=== PATIENT | female | born 1930 | race Caucasian/White ===

== ENCOUNTER 2016-09-05 05:45 | Day surgery (SDC) | payer MEDICARE, BC ==
[2016-09-04 16:00] LABS: BASOPHILS 0.4 % (0-2); EOSINOPHILS 2.5 % (0-7); HEMATOCRIT 41.9 % (36.0-48.0); LYMPHOCYTES 31.1 % (15-50); MCH 32.6 pg (26.0-34.0); MCHC 33.4 g/dL (31.0-37.0); MCV 97.4 fL (80.0-100.0); MEAN PLATELET VOLUME 10.6 fL (7.4-10.4); MONOCYTES 11.7 % (2-11); NEUTROPHILS 54.3 % (40-80); PLATELET COUNT 211 10x3/uL (130-400); RDW 14.2 % (11.5-14.5); WBC 6.8 10x3/uL (4.8-10.8)
[2016-09-04 16:15] LABS: ANION GAP 15.9 mmol/L (8-16); CALCIUM 9.8 mg/dL (8.5-10.1); CARBON DIOXIDE 26.4 mmol/L (21.0-32.0); CREATININE - SERUM 0.8 mg/dL (0.6-1.3); POTASSIUM - SERUM 4.3 mmol/L (3.5-5.1)
[~2016-09-05] VITALS: Ht 152.4 cm; Wt 56.7 kg
[~2016-09-05 05:45] MED LIST: ACETAMINOPHEN500 M1 PO; CALCIUM 250+D T1 TAB PO; DIOVAN80 MG PO; DURAGESIC1 PATCH .7 TRANSDERM; LEVOTHYROXINE100 MCG PO; MULTIPLE VITAMI1 TA1 PO; ZOCOR20 MG PO
[2016-09-05 08:07] VITALS: BP 154/70; Ht 152.4 cm; Wt 56.7 kg
[2016-09-05] MEDS ORDERED: HYDROCODONE-APA1 TAB PO (10:19)
--- NOTE | 2016-09-05 11:50 | NUR ---
STILL WAITING ON RUDDER, FOR RX
--- NOTE | 2016-09-05 11:50 | NUR ---
1030 IV DC WITH CATHER TIP INTACT
--- NOTE | 2016-09-05 12:32 | NUR ---
DR MIRANDA HERE,
--- NOTE | 2016-09-06 15:24 | OP ---
PATIENT NAME: SUZIE PRICE MEDICAL RECORD: [id number] :30 LOCATION:D.OPS ADMISSION DATE: SURGEON: MARIA MIRANDA MD DATE OF OPERATION: 09/05/2016 PREOPERATIVE DIAGNOSIS: Massive ganglion cyst of the left wrist. POSTOPERATIVE DIAGNOSES: Massive ganglion cyst of the left wrist and extensor pollicis longus rupture. PROCEDURE: 1. Removal of a very massive ganglion cyst, dorsal aspect of left wrist. 2. Repair of the extensor pollicis longus. SURGEON: Maria Miranda MD ANESTHESIA: General. INTRAOPERATIVE COMPLICATIONS: None. SUMMARY OF PATHOLOGIC FINDINGS: The patient had a near complete rupture of the EPL in the area of the ganglion cyst. OPERATIVE SUMMARY IN DETAIL: After obtaining the appropriate preoperative orthopedic surgery consent as well as anesthetic consultation, evaluation and clearance, the patient was brought to the operating room and placed in the operating table in supine position. Under adequate TIVA anesthesia, the patient's right upper extremity was prepared with tourniquet about the proximal aspect. The right upper extremity was then prepped and draped in a routine sterile fashion. The arm was elevated and exsanguinated, tourniquet inflated to 350 mmHg. An incision was made directly over the dorsal aspect of the ganglion cyst, carried down to the ganglion cyst. Careful dissection was carried around the multilobate ganglion cyst, which was both proximal to the dorsal wrist crease and distal to the distal wrist crease that required a very elongated incision. Multilobes of the ganglion cysts were removed, as a part of the removal, it was noticed the EPL was near complete rupture. A 4-0 Ethibond was utilized using a Rae stitch to reapproximate the ends. This was then oversewn with more 4-0 in a golbsl-rv-nnqae fashion to augment the repair. Having completed this, the wound was copiously irrigated. Ganglion cyst was sent for permanent specimen. After further irrigation, the incision was closed with 2-0 Vicryl followed by 4-0 Prolene in running fashion. At this point, the tourniquet was deflated and the wrist and thumb was placed in a thumb spica splint to protect the EPL repair. The patient was awakened and taken to recovery room in stable condition. All final needle and sponge counts were correct. TRANSINT:[id number] Voice Confirmation ID: [id number] DOCUMENT ID: [id number] OPERATIVE REPORT [id number] SUZIE PRICE MD, MARIA CALDERON at 1524 CC: [id number] DICTATION DATE: 09/05/16 1339 GRADER MEAT: 09/06/16 0039 [facility] 09/05/16 [place] [id number] [place] [id number]
== END 2016-09-05 12:34 | disposition home or self-care (01) ==
LOC: D.OPS 05:45 → D.PAN 08:15 → D.OPS 12:34
PROVIDERS: Anesthesiology
DX: M67.432 Ganglion, left wrist (principal); S66.811A Strain of other specified muscles, fascia and tendons at wrist and hand level, right hand, initial encounter; X58.XXXA Exposure to other specified factors, initial encounter; Z01.812 Encounter for preprocedural laboratory examination

== ENCOUNTER → 2016-09-19 10:00 | Outpatient (CLI) | payer MEDICARE, BC ==
[2016-09-05 08:07] VITALS: BMI 24.4
[~2016-09-19 10:00] MED LIST changes: +HYDROCODONE-APA1 TAB PO
[2016-09-19 10:46] LABS: BASOPHILS 0.2 % (0-2); EOSINOPHILS 0.2 % (0-7); HEMATOCRIT 40.3 % (36.0-48.0); HEMOGLOBIN 13.5 g/dL (12-16); IMMATURE GRANULOCYTES 0.4 % (0-5); LYMPHOCYTES 12.7 % (15-50); MCH 32.8 pg (26.0-34.0); MCHC 33.5 g/dL (31.0-37.0); MCV 98.1 fL (80.0-100.0); MEAN PLATELET VOLUME 9.6 fL (7.4-10.4); MONOCYTES 7.4 % (2-11); NEUTROPHILS 79.1 % (40-80); PLATELET COUNT 209 10x3/uL (130-400); RBC 4.11 10x6/uL (4.00-5.40); RDW 13.9 % (11.5-14.5); WBC 8.1 10x3/uL (4.8-10.8)
[2016-09-19 11:10] LABS: ALBUMIN 3.2 g/dL (3.4-5.0); ALKALINE PHOSPHATASE 50 U/L (46-116); ALT (SGPT) 20 U/L (10-68); CALC OSMOLALITY 279 mosm/kg (275-300); CALCIUM 9.4 mg/dL (8.5-10.1); CARBON DIOXIDE 26.4 mmol/L (21.0-32.0); CHLORIDE - SERUM 104 mmol/L (98-107); CREATININE - SERUM 0.7 mg/dL (0.6-1.3); GLUCOSE 113 mg/dL (74-106); POTASSIUM - SERUM 4.2 mmol/L (3.5-5.1); PROTEIN - SERUM 7.1 g/dL (6.4-8.2); SODIUM 139 mmol/L (136-145); eGFR NON AFRICAN AMERICAN 84 mL/min (90-120)
[2016-09-19 11:11] LABS: UREA NITROGEN 14 mg/dL (7-18)
== END | disposition home or self-care (01) ==
LOC: D.ER 10:00 → D.MRI 10:00 → EDSTATUS 13:00
PROVIDERS: Physician Assistant
DX: S00.03XA Contusion of scalp, initial encounter (principal); W19.XXXA Unspecified fall, initial encounter; Y93.89 Activity, other specified; Y92.481 Parking lot as the place of occurrence of the external cause; R42 Dizziness and giddiness; F11.90 Opioid use, unspecified, uncomplicated; R93.0 Abnormal findings on diagnostic imaging of skull and head, not elsewhere classified; I10 Essential (primary) hypertension; S01.01XA Laceration without foreign body of scalp, initial encounter

== ENCOUNTER 2016-09-29 08:17 | Emergency (ER) | payer MEDICARE, BC ==
[2016-09-29 09:16] LABS: BASOPHILS 0.3 % (0-2); EOSINOPHILS 0.8 % (0-7); HEMATOCRIT 42.5 % (36.0-48.0); HEMOGLOBIN 14.2 g/dL (12-16); IMMATURE GRANULOCYTES 0.1 % (0-5); LYMPHOCYTES 15.4 % (15-50); MCHC 33.4 g/dL (31.0-37.0); MCV 98.8 fL (80.0-100.0); MEAN PLATELET VOLUME 9.4 fL (7.4-10.4); MONOCYTES 9.7 % (2-11); NEUTROPHILS 73.7 % (40-80); PLATELET COUNT 225 10x3/uL (130-400); RDW 13.8 % (11.5-14.5); WBC 7.4 10x3/uL (4.8-10.8)
[2016-09-29 09:22] LABS: APPEARANCE CLOUDY (CLEAR); BILIRUBIN NEGATIVE (NEGATIVE); COLOR YELLOW (YELLOW); GLUCOSE NEGATIVE (NEGATIVE); KETONE NEGATIVE (NEGATIVE); LEUKOCYTE ESTERASE 1+ (NEGATIVE); NITRITE NEGATIVE (NEGATIVE); UROBILINOGEN NORMAL (NORMAL)
[2016-09-29 09:28] LABS: AMORPHOUS SEDIMENT >1+ /lpf (NONE SEEN); BACTERIA MANY /hpf (NONE SEEN); GRANULAR CAST 0-5 /lpf (NONE SEEN); HYALINE CAST OCC /lpf (NONE SEEN); PROTEIN TRACE mg/dL (NEGATIVE)
[2016-09-29 09:29] LABS: ALBUMIN 3.3 g/dL (3.4-5.0); ANION GAP 14.8 mmol/L (8-16); BILIRUBIN - TOTAL 0.43 mg/dL (0.2-1.3); CALCIUM 9.3 mg/dL (8.5-10.1); CARBON DIOXIDE 25.4 mmol/L (21.0-32.0); CREATININE - SERUM 0.8 mg/dL (0.6-1.3); POTASSIUM - SERUM 4.2 mmol/L (3.5-5.1); PROTEIN - SERUM 7.6 g/dL (6.4-8.2)
[2016-09-29] MEDS ORDERED: LEVOTHYROXINE100 MCG PO (13:00)
[2016-09-29] MEDS ORDERED: ZOCOR20 MG PO (13:02)
[2016-09-29] MEDS ORDERED: DIOVAN80 MG PO (13:02)
[2016-09-29] MEDS ORDERED: DURAGESIC1 PATCH .7 TRANSDERM (13:03)
[2016-09-30 09:41] VITALS: BMI 23.2
== END 2016-09-29 09:55 | disposition home or self-care (01) ==
LOC: D.ER 08:17 → EDBD 08:17 → D.ER 09:55
PROVIDERS: Emergency Medicine
DX: R42 Dizziness and giddiness (principal); N39.0 Urinary tract infection, site not specified; I10 Essential (primary) hypertension; E03.9 Hypothyroidism, unspecified

== ENCOUNTER 2016-09-29 11:19 | Inpatient (IN) | payer MEDICARE, BC ==
[~2016-09-29] VITALS: Ht 152.4 cm; Wt 56.5 kg
--- NOTE | ~2016-09-29 | HEMODYNAMI ---
PATIENT:SUZIE PRICE MEDICAL RECORD: [id number] : 30 LOCATION:[facility] D.2310 ADMISSION DATE: 09/30/16 Generatedon:09/30/201610:59 Patient name: SUZIE PRICE Patient #: [id number] SSN: D OB: 1930 Date of study: 09/30/2016 Page: Of Hemodynamic Procedure Report Patient Data Patient Demographics Procedure consent was obtained First Name: SUZIE Gender: Female Last Name: ALBERT : 1930 Patient #: [id number] Age: 86 year(s) Race: Unknown Additional ID: [id number] Contact details [address]: [address] [place] [address] State: [place] City: [place] Zip code: [address] Past Medical History Allergies Allergen Reaction Date Comments Reported Sulfa drugs 09/30/2016 Admission Admission Data Admission Date: 09/30/2016 Admission Time: 8:34 Room #: D.2310 Procedure Procedure Types Cath Procedure Diagnostic Procedure Temporary Pacemaker Miscellaneous Procedures Moderate Sedation up to 15 minutes Procedure Description Procedure Date Procedure Date: 09/30/2016 Procedure Start Time: 10:46 Procedure End Time: 10:58 Procedure Staff Name Function Cecil Chung MD Performing Physician Jorge Lomeli RN Nurse Jose Luis Warren RN Nurse Patric Amador RT Scrub Shameka Chirinos RT Monitor Procedure Data Cath Procedure Fluoroscopy Diagnostic fluoroscopy Total fluoroscopy Time: 2 time: 2 min min Entry Location Entry Primary Successful Side Size Upsize Upsize Entry Closure Succes sful Closure Location (Fr) 1 (Fr) 2 (Fr) Remarks Device Remarks Femoral Right 6 Fr Sheath with 2.0 vein Short sutured silk in place Estimated blood loss: 5 ml Procedure Medications Medication Administration Route Dosage Oxygen NC 2 l/min Lidocaine 2% added to field 20 Heparin Flush Bag added to field 1 bags (1000units/500ml NS) 0.9% NaCl I.V. 100 ml/hr Versed I.V. 1 mg Fentanyl I.V. 50 mcg Versed I.V. 0.5 mg Fentanyl I.V. 25 mcg Versed I.V. 0.5 mg Fentanyl I.V. 25 mcg Hemodynamics Rest Heart Rate: 90 (bpm) Snapshots Pre Cath Intra NCS Post Cath Vital Signs Time Heart Resp SPO2 NIBP (mmHg) Rhythm Pain Sedation Rate (ipm) (%) Status Level (bpm) 10:31:11 92 14 97 153/100(106) NSR 0 (11) 10(A) , No pain 10:35:33 88 15 100 162/89(130) NSR 0 (11) 10(A) , No pain 10:39:56 89 16 100 140/73(107) NSR 0 (11) 10(A) , No pain 10:44:10 84 15 99 123/75(103) NSR 0 (11) 9(A) , No pain 10:48:24 83 15 100 139/68(91) NSR 0 (11) 9(A) , No pain 10:52:29 86 16 98 105/62(89) NSR 0 (11) 9(A) , No pain 10:57:20 85 16 100 130/68(102) NSR 0 (11) 10(A) , No pain Medications Time Medication Route Dose Verified Delivered Reason Notes Effe ctiveness by by 10:30:20 Oxygen NC 2 Cecil Buffie used for l/min Juliet Warren RN procedure 10:30:27 Lidocaine 2% added 20ml Cecil Cecil for local to vial Juliet Chung MD anesthetic field 10:30:40 Heparin Flush added 1 Cecilindira Jacob used for Bag to bags Juliet Chung MD procedure (1000units/500ml field NS) 10:30:50 0.9% NaCl I.V. 100 Cecil Buffie Per ml/hr Juliet Warren RN physician 10:41:13 Versed I.V. 1 mg Cecil Buffie for Juliet Warren RN sedation 10:41:21 Fentanyl I.V. 50 Cecil Buffie for mcg Juliet Warren RN sedation 10:46:54 Versed I.V. 0.5 Cecil Buffie for mg Juliet Warren RN sedation 10:46:59 Fentanyl I.V. 25 Cecil Ponceie for mcg Juliet Warren RN sedation 10:52:50 Versed I.V. 0.5 Cecil Buffie for mg Juliet Warren RN sedation 10:52:54 Fentanyl I.V. 25 Cecil Amaya for mcg Juliet Warren RN sedation Procedure Log Time Note 9:55:32 Jorge Lomeli RN sent for patient. Start room use. 10:07:33 Time tracking: Regular hours 10:07:37 Plan of Care:Hemodynamics will remain stable., Cardiac rhythm will remain stable., Comfort level will be maintained., Respiratory function will remain adequate., Patient/ family verbilizes understanding of procedure., Procedure tolerated without complication., Recovers from procedure without complications.. 10:29:39 Patient received from ICU to CCL 3 Alert and oriented. Tansferred to table in Supine position. 10::41 Warm blankets applied, and reinaldo hugger turned on for patient comfort. 10::41 Correct patient and procedure confirmed by team. 10:29:50 Signed procedure consent form obtained from patient. 10::54 ECG and BP/O2 sat monitors applied to patient. 10::55 Vital chart was started 10::56 Baseline sample Acquired. 10:30:01 Rhythm: sinus rhythm 10:30:08 Pre-procedure instructions explained to patient. 10:30:09 Pre-op teaching completed and patient verbalized understanding. 10:30:12 Family unavailable. 10:30:19 Patient allergic to Sulfa drugs 10:30:20 Oxygen 2 l/min NC was administered by Jose Luis Warren RN; used for procedure; 10:30:27 Lidocaine 2% 20ml vial added to field was administered by Cecil Chung MD; for local anesthetic; 10:30:40 Heparin Flush Bag (1000units/500ml NS) 1 bags added to field was administered by Cecil Chung MD; used for procedure; 10:30:50 0.9% NaCl 100 ml/hr I.V. was administered by Jose Luis Warren RN; Per physician; 10:31:12 Use device set Acist 10:31:27 Terumo 6Fr [place] Sheath opened to sterile field. 10:32:43 5Fr J Tip Temporary Pacing Catheter opened to sterile field. 10:32:56 Patient diabetic? No. 10:33:02 Snore? Yes 10:33:03 Sleep apnea? No 10:33:04 Deviated septum? No 10:33:05 Opens mouth fully? Yes 10:33:06 Sticks out tongue? Yes 10:33:09 Airway obstruction? No ? 10:33:26 IV patent on arrival in right forearm with 0.9% NaCl at [facility]. 10:33:33 Right groin area was prepped with chlora-prep and draped in sterile fashion 10:33:36 Alarms reviewed by R. N. 10:33:36 Sharps counted by scrub and verified by R.N. 10:37:51 Medline Cath Pack opened to sterile field. 10:37:52 Bag Decanter opened to sterile field. 10:39:20 2.0 Silk 685H opened to sterile field. 10:40:07 Final Timeout: patient, procedure, and site verified with staff and physician. All members of the team are in agreement. 10:40:11 Right groin site verified by team. 10:40:16 Physical assessment completed. ASA score P 2 - A patient with mild systemic disease as per Cecil Chung MD. 10:40:26 Sedation plan: IV Moderate Sedation Versed, Fentanyl 10:41:13 Versed 1 mg I.V. was administered by Jose Luis Warren RN; for sedation; 10:41:21 Fentanyl 50 mcg I.V. was administered by Jose Luis Warren RN; for sedation; 10:45:44 Procedure started. 10:45:45 Full Disclosure recording started 10:46:34 Local anesthetic to right femoral vein with Lidocaine 2% by Cecil Chung MD.INITIAL ACCESS ONLY 10:46:54 Versed 0.5 mg I.V. was administered by Jose Luis Warren RN; for sedation; 10:46:59 Fentanyl 25 mcg I.V. was administered by Jose Luis Warren RN; for sedation; 10:47:12 A 6 Fr Short sheath was inserted into the Right Femoral vein 10:47:27 Temporary pacer inserted 10:50:14 Temporary pacer turned on with the following settings: Rate 40, MA 5, Mode: Demand. 10:51:44 Sheath removed intact; hemostasis achieved with Sheath sutured in place to the Right Femoral vein. 10:51:46 Procedure ended.(Physican Out) 10:52:08 Fluoroscopy time 02.00 minutes. 10:52:50 Versed 0.5 mg I.V. was administered by Jose Luis Warren RN; for sedation; 10:52:54 Fentanyl 25 mcg I.V. was administered by Jose Luis Warren RN; for sedation; 10:53:15 Flouro Dose: 508.22 cGy/cm2 10:53:20 Sharps counted by scrub and verified by R.N. 10:53:23 Insertion/operative site no bleeding no hematoma. 10:53:29 Post-op/insertion site Right Femoral vein dressed using a 4 x 4 and Tegaderm. 10:53:39 Post right femoral vein:stable, clean and dry 10:53:40 Post Procedure Pulses reassessed and unchanged 10:53:42 Post-procedure physical assessment completed. ASA score P 2 - A patient with mild systemic disease as per Cecil Chung MD. 10:53:45 Post procedure rhythm: unchanged. 10:53:47 Estimated blood loss: 5 ml 10:53:48 Post procedure instruction explained to patient.Patient verbalizes understanding. 10:53:48 Patient needs reinforcement of post procedure teaching. 10:53:59 See physician's report for complete and final results. 10:54:35 Procedure type changed to Cath procedure, Diagnostic procedure, Temporary Pacemaker, Miscellaneous Procedures, Moderate Sedation up to 15 minutes 10:54:39 Procedure and supply charges have been captured, reviewed, submitted and are correct. 10:55:16 Tegaderm 4 x 4 opened to sterile field. 10:55:49 Tegaderm 4 x 4 opened to sterile field. 10:58:24 Vital chart was stopped 10:58:28 Report given to ICU. 10:58:35 Patient transfered to ICU with Bed. 10:58:41 Procedure ended. 10:58:41 Full Disclosure recording stopped 10:58:44 End room use (Document Last) Device Usage Item Name Manufacture Quantity Catalog Hospital Part Current Minimal Lot # / Number Charge Number Stock Stock Serial# Code Terumo Terumo 1 [id number] 40 6Fr [place] Sheath 5Fr J Tip Hernandez 1 [id number] [id number] 47745 [id number] 2 Temporary Lifesciences Pacing Catheter Medline Cardinal 1 [id number] 69790 [id number] 5 Cath Pack Health Bag Microtek 1 [id number] 21486 [id number] 5 Decanter [employer] 2.0 Silk Ethicon 1 [id number] 15608 [id number] 5 685H Tegaderm 2 [id number] [id number] 192770 374271 5 4 x 4 Signature Audit [place] Stage Time Signature Unsigned Intra-Procedure 09/30/2016 Shameka 10:58:58 AM Counts RT(R) Signatures Monitor : Shameka Signature : Counts RT Date : Time : [address] [address]
--- NOTE | ~2016-09-29 | EC ---
PATIENT:SUZIE PRICE DATE OF SERVICE: 09/30/16 SEX: F MEDICAL RECORD: [id number] DATE OF : 30 LOCATION:[place] [address] AGE OF PATIENT: 86 ADMISSION DATE: 09/30/16 REFERRING PHYSICIAN: INTERPRETING PHYSICIAN: CESAR CHUNG MD ECHOCARDIOGRAM REPORT ECHO CHARGES 4 ECHO COMPLETE CLINICAL DIAGNOSIS: NEAR SYNCOPE ECHOCARDIOGRAPHIC MEASUREMENTS (adult normal given) AC root (d.<3.7cm) 3.1 LV Septum d (<1.2 cm> 1.3 Valve Excursion 0.9 LV Septum (systole) 1.7 Left Atria (s.<4.0cm> 3.1 LVPW d(<1.2cm) 1.2 RV (d.<2.3cm) 2.7 LVPW (sytole) 1.8 LV diastole(<5.6CM) 5.3 MV E-F(>70mm/sec) LV systole 3.3 LVOT Diameter 1.7 MV exc.(>10mm) Est.ejection fraction (50-75%) Pericardial Effusion N DOPPLER: LVIT A 174.0 E 131 LA RVSP 38.2 LVOT 100 AOP1/2T Asc. Ao 430 RVOT 120 RA PA 78.0 AV Gradient Peak 74.0 AV Mean 46.4 AV Area 0.5 MV Gradient Peak 19.0 MV Mean 4.9 MV Area COMMENTS: Knife Glazer: Rodolfo ZAMORANOOE Alining Inspector:1 Dr. Chung TAPE# PACS TWO-DIMENSIONAL ECHOCARDIOGRAM WITH DOPPLER 1. Left ventricular chamber size is within normal limits. Left ventricular systolic function is normal. Overall ejection fraction is estimated at 55 percent. 2. Left atrium, right atrium, and right ventricular chamber sizes are within normal limits. 3. 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 The valve area calculates to 0.5 centimeters squared, and there is a gradient of 74 millimeters across the valve. The remaining valvular structures have normal structure and motion. ECHOCARDIOGRAM REPORT [id number] SUZIE PRICE 4. Other than the above mentioned aortic stenosis, Doppler interrogation reveals mild to moderate mitral regurgitation; no other valvular insufficiency or stenosis. Pulmonary artery systolic pressure is at 38 millimeters of mercury. 5. No evidence of pericardial effusion or left ventricular thrombus. CESAR CHUNG MD CC: [id number] DICTATION DATE: 09/30/16 1400 MANAGER OF OPERATIONS: DENNIS 10/01/16 1125 ADM IN [facility] [address] [facility], [facility]
--- NOTE | ~2016-09-29 | OP ---
PATIENT NAME: SUZIE PRICE MEDICAL RECORD: [id number] :30 [facility]ATION[facility].CV08 ADMISSION DATE:09/30/16 SURGEON: DAYNE GABRIEL MD OPERATION DATE: 10/01/16 SURGEON: Dayne Gabriel M.D. ANESTHESIA: General endotracheal by Dr. Hoyos. PROCEDURE: Insertion of dual chamber pacing system. PREOPERATIVE DIAGNOSIS: Complete heart block. POSTOPERATIVE DIAGNOSIS: Complete heart block. INDICATION FOR OPERATION: Complete heart block with profound cardiac pauses. FINDINGS OF OPERATION: The pulse generator Medtronic Adaptor ADDR 01, serial #[id number]. Atrial lead Medtronic model #4574-45, serial #[id number], ventricular lead Medtronic model #4074-52, serial #[id number]. LEAD ANALYSIS: Atrial lead threshold 0.2 volts, current threshold 0.2 milliamps, resistance 566 ohms. P-wave 2.9. Ventricular lead threshold 0.3 volts, current threshold 0.2 milliamps, resistance 972 ohms. R-wave 5.6. ESTIMATED BLOOD LOSS: Less than 5 mL. FLUOROSCOPY TIME: 5 minutes. PROCEDURE IN DETAIL: After informed consent, adequate preoperative medication, and evaluation, the patient was brought to the operating room and placed stable in the supine position. After induction of general endotracheal anesthesia and application of appropriate monitoring devices, the left chest was prepped and draped in sterile field utilizing Betadine scrub, alcohol, and Betadine solution. Betadine impregnated drape was also used. 1% Lidocaine was infiltrated in the left subclavicular space. Incision made. Dissection carried down to the fascia. Pacemaker pocket was formed. The subclavian vein was cannulated with the introducer. The leads placed in the heart. The above electrophysiology study was done and felt to be in good position. The leads were secured. The leads then connected to the pulse generator. The pacemaker placed in the pocket. The pacemaker fired, captured, and sensed appropriately. The pocket was irrigated. Instrument count and sponge count were correct times two. The pocket was closed in layers utilizing 3-0 Vicryl and 5-0 subcuticular Monocryl. Sterile dressing was applied. The temporary pacing wire was then removed from the right femoral vein under fluoroscopic guidance. Hemostasis was obtained. A sterile dressing applied. The patient tolerated the procedure well and was transferred to Cardiovascular Intensive Care Unit in satisfactory condition. OPERATIVE REPORT [id number] SUZIE PRICE EDWARD MD CC: [id number] DICTATION DATE: 10/01/16 1000 GENERATOR MECHANIC: DENNIS 10/01/16 1332 ADM IN [place] [id number] [place] [address]
--- NOTE | ~2016-09-29 | OP ---
PATIENT NAME: SUZIE PRICE MEDICAL RECORD: [id number] :30 LOCATION:[place] [facility].CV08 ADMISSION DATE:09/30/16 SURGEON: CESAR LEWIS MD OPERATION DATE: 09/30/16 PROCEDURE: 1. Temporary transvenous pacemaker. INDICATION: 1. Third degree heart block. 2. Bradycardia. PROCEDURE IN DETAIL: After informed consent was obtained and after detailed explanation of risks, benefits, as well as alternative therapies, the patient elected to proceed. The right femoral area was prepped and draped in a normal sterile fashion. The right femoral vein was cannulated via modified Seldinger technique with placement of 6-Armenian key th. All catheters exchanged through this sheath. FINDINGS: The patient had the pacemaker advanced into the right ventricular apex. Pacing was undertaken with 100% capture. OVERALL IMPRESSION: Successful transvenous temporary pacemaker placed for third degree heart block and symptomatic bradycardia. CESAR LEWIS MD CC: [id number] DICTATION DATE: 09/30/16 1400 PRODUCT EVANGELIST: DENNIS 10/01/16 1227 ADM IN [place] [id number] [place] [id number]
[2016-09-29] MEDS ORDERED: LEVOTHYROXINE100 MCG PO (13:00)
[2016-09-29] MEDS ORDERED: ZOCOR20 MG PO (13:02)
[2016-09-29] MEDS ORDERED: DIOVAN80 MG PO (13:02)
[2016-09-29] MEDS ORDERED: DURAGESIC1 PATCH .7 TRANSDERM (13:03)
[2016-09-29 13:24] VITALS: BP 151/88
[2016-09-29 14:15] VITALS: BMI 23.2
[2016-09-29 15:11] VITALS: BP 152/67
[2016-09-29 15:14] VITALS: BP 137/79
[2016-09-29 16:01] LABS: CKMB 1.4 U/L (0.0-3.6); CREATINE KINASE 53 UL (21-215); THYROID STIMULATING HORMONE 1.07 uIU/mL (0.36-3.74); TROPONIN-I 0.023 ng/mL (0.000-0.060)
[2016-09-29 20:00] VITALS: BP 100/43
[2016-09-29 22:28] LABS: CKMB 1.1 U/L (0.0-3.6); CREATINE KINASE 41 UL (21-215); TROPONIN-I 0.027 ng/mL (0.000-0.060)
[2016-09-30] VITALS (28 sets, daily range): BP systolic 104–169; BP diastolic 52–84; Ht 152.4 cm; Wt 56.5 kg
[2016-09-30 03:57] LABS: BASOPHILS 0.4 % (0-2); EOSINOPHILS 1.8 % (0-7); HEMATOCRIT 38.1 % (36.0-48.0); HEMOGLOBIN 12.8 g/dL (12-16); IMMATURE GRANULOCYTES 0.2 % (0-5); LYMPHOCYTES 22.1 % (15-50); MCH 32.9 pg (26.0-34.0); MCHC 33.6 g/dL (31.0-37.0); MCV 97.9 fL (80.0-100.0); MEAN PLATELET VOLUME 9.2 fL (7.4-10.4); MONOCYTES 11.2 % (2-11); NEUTROPHILS 64.3 % (40-80); PLATELET COUNT 205 10x3/uL (130-400); RBC 3.89 10x6/uL (4.00-5.40); RDW 13.8 % (11.5-14.5); WBC 8.3 10x3/uL (4.8-10.8)
[2016-09-30 04:19] LABS: CALC OSMOLALITY 283 mosm/kg (275-300); CALCIUM 8.5 mg/dL (8.5-10.1); CARBON DIOXIDE 26.2 mmol/L (21.0-32.0); CHLORIDE - SERUM 109 mmol/L (98-107); CKMB 1.4 U/L (0.0-3.6); CREATINE KINASE 43 UL (21-215); CREATININE - SERUM 0.6 mg/dL (0.6-1.3); GLUCOSE 96 mg/dL (74-106); POTASSIUM - SERUM 3.5 mmol/L (3.5-5.1); SODIUM 143 mmol/L (136-145); TROPONIN-I 0.027 ng/mL (0.000-0.060); UREA NITROGEN 10 mg/dL (7-18); eGFR NON AFRICAN AMERICAN > 90 mL/min (90-120)
--- NOTE | 2016-09-30 07:25 | NUR ---
PLANT PHYSIOLOGY TEACHER STATED PATIENT HAS A 3RD DEGREE HEAR BLOCK. WENT TO CHECK ON PATIENT, B 128/43, HR 38 MANUALLY, O2 100% ON ROOM AIR. NO CHEST PAIN BUT STATES SHE FEELS DIZZY. RAPID RESPONSE CALLED.
--- NOTE | 2016-09-30 07:52 | NUR ---
RECEIVED PT FROM MED SURG 2226. CAME IN WITH HISTORY OF DIZZINESS. STATES THAT IT STARTED AROUND August. REPORTS HAVING A GLANGLION CYST REMOVED August. PT IS AWAKE AND ALERT. REPORTS SOME DIZINESS. BP 184/56 MAP 85, MI 40, RR 20, O2 SAT 97 RA. NO SOB NOTED AT THIS TIME. HEART MURMUR NOTED. JUNCTIONAL RHYTHM PER EKG. LUNGS CLEAR THROUGH OUT. BS ACTIVE X 4 QUADRANTS. RADIAL PULSES 2+ EQUAL BILAT. PEDAL PULSES WEAK EQUAL BILATERAL. BRUISING NOTED ON LEFT ARM. SKIN WARM. EYES REACTIVE TO LIGHT. WEARS GLASSES. R FOREARM PIV WITH NS INFUSING AT 75 ML/HR. CALL LIGHT IN REACH, BED LOW POSTION. WILL CONTINUE TO MONITOR.
--- NOTE | 2016-09-30 08:03 | NUR ---
SPOKE WITH . STATES HE IS ON HIS WAY HERE.
--- NOTE | 2016-09-30 08:07 | NUR ---
PAGED DR. CASTILLO ABOUT TRANSFER TO ICU.
--- NOTE | 2016-09-30 09:10 | NUR ---
SPOKE WITH AALIYAH SIFUENTES ABOUT PATIENTS HEART RATE. SHE WILL CONSULT DR. GONSALES TO SEE ABOUT GETTING A PACEMAKER FOR PATIENT.
--- NOTE | 2016-09-30 09:23 | NUR ---
CONSULT TO DR. DRU RIVERA. AALIYAH SIFUENTES SPOKE WITH PERCY ABOUT IT.
--- NOTE | 2016-09-30 09:28 | NUR ---
CONVERTED TO SINUS RHYTHM VA 90.
--- NOTE | 2016-09-30 09:57 | NUR ---
PT IN AND OUT OF SINUS RHYTHM HR UP IN 90 DOWN TO 40S. SPOKE WITH AALIYAH SIFUENTES. TEMPORARY PACEMAKER TO BE PLACED TODAY BY DR. PETERS. DR. GONSALES WILL PLACE PERMANENT PACEMAKER TOMORROW.
--- NOTE | 2016-09-30 10:06 | NUR ---
HEART RATE DROPPED FROM 90S TO 20S. SPOKE WITH AALIYAH SIFUENTES. TEMPORARY PACEMAKER TO BE PLACED TODAY. DR. GONSALES WILL PLACE PERMANENT PACEMAKER TOMORROW.
--- NOTE | 2016-09-30 10:19 | NUR ---
DSOUZA INSERTED AND SECURED TO RIGHT THIGH. PT BEING TRANSFERRED TO BLANKER PRESS OPERATOR FOR TEMPORARY PACEMAKER PLACEMENT.
--- NOTE | 2016-09-30 11:01 | NUR ---
REPORT RECEIVED FROM PEST CONTROL SUPERVISOR. TEMPORARY PACEMAKER PLACED VIA RIGHT GROIN. SET RATE 40, 5 MA. PT NEEDS TO STAY FLAT WITH LEG STRAIGHT.
--- NOTE | 2016-09-30 11:15 | NUR ---
PT CAME BACK FROM SOUND ART INSTRUCTOR. T 97.9, BP 141/66, MD 86, RR 18, 02 SAT 94 AT 2L NC. TEMPORARY PACEMAKER IN RIGHT GROIN. DRESSING INTACT. AND CULINARY SPECIALIST IN ROOM AT THIS TIME. PT AWAKE, ALERT AND CONVERSANT. NS INFUSING IN R FOREARM AT 75ML/HR. DSOUZA IN PLACE WITH LIGHT YELLOW URINE. CALL LIGH IN REACH. NO OTHER NEEDS AT THIS TIME. PACEMAKER SETTING RR 40, 5 MA.
--- NOTE | 2016-09-30 11:52 | NUR ---
PRE OP MEDS MEDS GIVEN. GOING TO COMPUTER SERVICE TECHNICIAN FOR PROCEDURE. IN WAITING ROOM AREA.
--- NOTE | 2016-09-30 12:10 | NUR ---
DR. LEWIS TALKED TO PATIENT AND . EXPLAINED TO THEM THAT SHE HAS A VERY SLOW HEART BEAT. INFORMED THEM THAT A PERMANENT PACEMAKER WILL BE PLACED TOMORROW.
[2016-09-30 12:41] LABS: HEMATOCRIT 40.5 % (36.0-48.0); HEMOGLOBIN 13.2 g/dL (12-16); MCH 32.5 pg (26.0-34.0); MCHC 32.6 g/dL (31.0-37.0); MCV 99.8 fL (80.0-100.0); MEAN PLATELET VOLUME 9.9 fL (7.4-10.4); RBC 4.06 10x6/uL (4.00-5.40); WBC 7.2 10x3/uL (4.8-10.8)
[2016-09-30 12:49] LABS: APTT 22.6 SECONDS (22.8-39.4); CALCIUM 8.3 mg/dL (8.5-10.1); CARBON DIOXIDE 23.8 mmol/L (21.0-32.0); CHLORIDE - SERUM 110 mmol/L (98-107); CREATININE - SERUM 0.6 mg/dL (0.6-1.3); GLUCOSE 103 mg/dL (74-106); INR 1.06 (0.85-1.17); PROTIME 13.7 SECONDS (11.6-15.0); SODIUM 143 mmol/L (136-145); eGFR NON AFRICAN AMERICAN > 90 mL/min (90-120)
[2016-09-30 12:53] LABS: CALC OSMOLALITY 282 mosm/kg (275-300); POTASSIUM - SERUM 4.6 mmol/L (3.5-5.1); UREA NITROGEN 7 mg/dL (7-18)
--- NOTE | 2016-09-30 13:00 | NUR ---
LUNCH TRAY IN ROOM. RAISED PT HEAD TO 30 DEGREES SO SHE COULD EAT LUNCH. ASSISTED WITH MEAL. NO OTHER NEEDS AT THIS TIME.
--- NOTE | 2016-09-30 14:22 | NUR ---
DR. LEMA SPOKE WITH PATIENT ABOUT ANESTHESIA.
--- NOTE | 2016-09-30 16:11 | NUR ---
DR. GONSALES SPOKE WITH PATIENT AND ABOUT THE PLACEMENT OF PERMANENT PACEMAKER TOMORROW MORNING.
--- NOTE | 2016-09-30 16:50 | NUR ---
CONSENT FORMS SIGNED FOR PERMANENT PACEMAKER PLACEMENT, BLOOD TRANSFUSION AND ANESTHESIA. PLACED IN CHART.
--- NOTE | 2016-09-30 19:00 | NUR ---
REPORT REICIEVED. ASSESSMENT COMPLETE PER FLOW SHEET. VSS. PT SLEEPING COMFORTABLY. WILL CONTINUE TO MONITOR
--- NOTE | 2016-09-30 21:00 | NUR ---
PT GIVEN APPLE JUICE PER REQUEST. DENIES FURTHER NEEDS. NO NEW FINDINGS. WILL CONTINUE TO MONITOR
--- NOTE | 2016-09-30 23:12 | NUR ---
REASSESSMENT COMLPLETE PER FLOW SHEET. VSS. NO NEW CHANGES. WILL CONTINUE TO MONITOR
[2016-10-01] VITALS (24 sets, daily range): BP systolic 111–160; BP diastolic 46–98
--- NOTE | 2016-10-01 01:36 | NUR ---
REQUESTS WATER GIVEN ORAL CARE SWABS FOR COMFORT. DENIES FURTHER NEEDS.
--- NOTE | 2016-10-01 03:36 | NUR ---
REASSESSMENT COMPLETE PER FLOW SHEET. VSS. NO NEW CHANGES AT THIS TIME. PT SLEPEING COMFORTABLY. WILL CONTINUE TO MONITOR
--- NOTE | 2016-10-01 05:00 | NUR ---
VSS NO NEW CHANGES. WILL CONTINUE TO MONITOR
[2016-10-01 05:14] LABS: BASOPHILS 0.2 % (0-2); EOSINOPHILS 2.6 % (0-7); HEMOGLOBIN 13.7 g/dL (12-16); IMMATURE GRANULOCYTES 0.1 % (0-5); LYMPHOCYTES 19.9 % (15-50); MCH 32.5 pg (26.0-34.0); MCHC 32.6 g/dL (31.0-37.0); MCV 99.8 fL (80.0-100.0); MONOCYTES 10.9 % (2-11); NEUTROPHILS 66.3 % (40-80); RBC 4.21 10x6/uL (4.00-5.40); RDW 14.1 % (11.5-14.5); WBC 8.1 10x3/uL (4.8-10.8)
[2016-10-01 05:19] LABS: PLATELET COUNT 223 10x3/uL (130-400)
[2016-10-01 05:23] LABS: CALC OSMOLALITY 275 mosm/kg (275-300); CHLORIDE - SERUM 108 mmol/L (98-107); CREATININE - SERUM 0.6 mg/dL (0.6-1.3); GLUCOSE 89 mg/dL (74-106); SODIUM 140 mmol/L (136-145); UREA NITROGEN 7 mg/dL (7-18); eGFR NON AFRICAN AMERICAN > 90 mL/min (90-120)
[2016-10-01 05:26] LABS: POTASSIUM - SERUM 3.8 mmol/L (3.5-5.1)
--- NOTE | 2016-10-01 06:07 | NUR ---
PREOP MEDS ADM PER T ORDER. TEDS SCD'S APPLIED CHLORAHEXADINE BATH ADM. VSS WILL CONTINUE TO MONITOR
--- NOTE | 2016-10-01 09:15 | NUR ---
REC'D VIA BED FROM OR, DROWSEY, GARBLED SPEECH, FOLLOWS COMMANDS, SIMPLE MASK IN PLACE WITH 9L O2, SAT 98%, LEFT UPPER CHEST WITH PM DRESSING, CDI, ARM SLING IN PLACE, RIGHT GROIN DRESSING CDI, DSOUZA TO GRAVITY WITH CLEAR YELLOW DRAINAGE, TEDS/SCDS B/L, ASSESSMENT COMPLETED PER FLOWSHEET, SPOUSE CALLED TO BEDSIDE, CALL LIGHT IN REACH, STATUS UPDATED, VOICES NO OTHER NEEDS AT THIS TIME
--- NOTE | 2016-10-01 10:00 | NUR ---
SIMPLE MASK CHANGED TO NC AT 4L, WILL CONTINUE WITH POC
--- NOTE | 2016-10-01 10:32 | NUR ---
* Is the patient Alert and Oriented? Yes 0 * How many steps to enter\exit or inside your home? 1 0 * PCP Dr. Ellison 0 * Pharmacy [facility] 0 * Preadmission Environment Home with Family 0 * ADLs Independent 0 * Equipment Rolling Walker 0 * List name and contact numbers for known caregivers / representatives who currently or will assist patient after discharge: Spouse - Quinton [phone] 0 * Additional services required to return to the preadmission environment? No 0 * Can the patient safely return to the preadmission environment? Yes 0 * Has this patient been hospitalized within the prior 30 days at any hospital? No 10/01/2016 10:33 DCP: Discharge Planning Patient Name: SUZIE PRICE Admission Status: ER Accout number: [id number] Admission Date: 09-30-2016 : 1930 Admission Diagnosis: Attending: MONIK Current LOS: 1 Anticipated DC Date: 10-03-2016 Planned Disposition: Home Primary Insurance: MEDICARE A & B Discharge Planning Comments: CM met with patient & spouse to assess dc plans/needs. They have been 63 years. They live in a single level home. Prior to admission, patient was independent with ADL's but did you a walker at times. She has not had home health services in the past. At dc, she will return home with her . She may benefit from home health services. CM will follow & assist as needed. Geosciences Faculty Member: Terri Ling
--- NOTE | 2016-10-01 11:00 | NUR ---
WATER AND APPLE JUICE TO BEDSIDE, ASSESSMENT COMPLETED NO ACUTE CHANGE FROM PREVIOUS ASSESSMENT, VSS, CALL LIGHT IN REACH
--- NOTE | 2016-10-01 12:57 | NUR ---
REPOSITIONED TO RIGHT SIDE WITH PILLOW PROPPED TO BACK AND HEELS FLOATED, NO OTHER NEEDS AT THIS TIME
--- NOTE | 2016-10-01 15:00 | NUR ---
SLEEING WITH NO SIGNS OF DISTRESS, VSS, AROUSES TO VERBAL STIMULI, ASSESSMENT COMPLETE, NO ACUTE CHANGE FROM PREVIOUS
--- NOTE | 2016-10-01 17:00 | NUR ---
STERILE UA COLLECTED PER PROTOCAL, TUBED TO LAB FOR EVAL
--- NOTE | 2016-10-01 17:30 | NUR ---
DINNER TRAY TO BEDSIDE, ASSISTED WITH SET UP AND EATING, 40% OF MEAL EATEN
--- NOTE | 2016-10-01 18:00 | NUR ---
NO VISITORS AT THIS TIME, AAO, WATCHING TV, CALL LIGHT IN REACH NO NEEDS AT THIS TIME
[2016-10-01 18:29] LABS: APPEARANCE CLEAR (CLEAR); BILIRUBIN NEGATIVE (NEGATIVE); COLOR YELLOW (YELLOW); GLUCOSE NEGATIVE (NEGATIVE); KETONE NEGATIVE (NEGATIVE); LEUKOCYTE ESTERASE NEGATIVE (NEGATIVE); NITRITE NEGATIVE (NEGATIVE); PROTEIN NEGATIVE (NEGATIVE); SPECIFIC GRAVITY 1.015 (1.005-1.020); UROBILINOGEN NORMAL (NORMAL)
[2016-10-01 18:36] LABS: EPITHELIAL CELLS 0-5 /hpf (0-5); WHITE CELLS - URINE 0-5 /hpf (0-5)
[2016-10-01 18:37] LABS: BACTERIA FEW /hpf (NONE SEEN)
--- NOTE | 2016-10-01 19:40 | NUR ---
Assessment complete. See flowsheet. Pt resting on back with HOB @ 30 degrees upon entrance into room with VSS. Pt awakens easily to verbal stimulation calm and cooperative, oriented x4 and following all conversation. Pupils size 3 bilaterally ERRLA. No neuro deficits noted. Respirations even and unlabored. O2 RA. Lung sounds clear to all hernandez. HR ventrically paced with S1S2 auscultated. Aortic grade 3 murmur auscultated. All peripheral pulses +2 with capillary refill <3 seconds. Left upper chest TPM site CDI with dressing secure. Left arm secure in sling. Pt denies pain at this time. Abdomen soft and slightly distended with BS present to all quadrants. Nausea denied. Mayes catheter secure and retrieving clear/yellow urine. SCDs secure/JOSUE hoses secure bilaterally. Call light and bedside table within reach. Further needs denied at this time. CPOC.
--- NOTE | 2016-10-01 19:40 | NUR ---
Right forearm 22g PIV site CDI no s/s infection or infiltration with NS infusing @ 100cc/hr and rate decreased to 75cc/hr per order.
--- NOTE | 2016-10-01 21:40 | NUR ---
Two extra pillows provided per request. Fresh ice water provided. Pt denies further needs at this time and continues to rest. VSS. Call light and bedside table remain within reach. Heels bridged. CPOC.
--- NOTE | 2016-10-01 23:40 | NUR ---
Reassessment complete. See flowsheet. Pt awake and pulled up in bed; repositioned to left side slightly. Sling to left arm. Pacemaker site CDI; unchanged. NO neuro deficits noted. O2 RA. Respirations unlabored. Lung sounds CTA. HR SR with S1S2/aortic murmur auscultated. All peripheral pulses +2 with capillary refill <3 seconds. Right forearm PIV site CDI with NS infusing @ 75cc/hr. BS +. Mayes remains secure retrieving clear/yellow urine. Pain denied. Pt helped with sips of ice water. Arms and heels rebridged. Call light and bedside table remain within reach. CPOC.
[2016-10-02] VITALS (13 sets, daily range): BP systolic 110–155; BP diastolic 42–82
--- NOTE | 2016-10-02 01:40 | NUR ---
Pt helped to position for comfort. VSS
--- NOTE | 2016-10-02 03:40 | NUR ---
Reassessment complete. See flowsheet. Pt repositioned after AM CXR to right side. HOB @ 20 degrees. No neuro changes to note. O2 RA. Lung sounds remain clear to all hernandez. HR remains paced with S1S2, murmur auscultated. PIV site CDI with NO IVF changes to note. BS +. Mayes remains secure. Pain and further needs denied. Call light and bedside table remain within pt reach. CPOC.
[2016-10-02 05:19] LABS: BASOPHILS 0.1 % (0-2); EOSINOPHILS 1.2 % (0-7); HEMATOCRIT 36.2 % (36.0-48.0); IMMATURE GRANULOCYTES 0.2 % (0-5); LYMPHOCYTES 14.1 % (15-50); MCH 32.3 pg (26.0-34.0); MCHC 33.1 g/dL (31.0-37.0); MEAN PLATELET VOLUME 9.4 fL (7.4-10.4); MONOCYTES 11.3 % (2-11); NEUTROPHILS 73.1 % (40-80); RBC 3.71 10x6/uL (4.00-5.40); RDW 13.7 % (11.5-14.5); WBC 8.3 10x3/uL (4.8-10.8)
[2016-10-02 05:23] LABS: MCV 97.6 fL (80.0-100.0); PLATELET COUNT 171 10x3/uL (130-400)
--- NOTE | 2016-10-02 05:40 | NUR ---
Pt resting quietly with VSS. NO s/s pain or distress. Call light and bedside table remain within pt reach. CPOC.
[2016-10-02 06:59] LABS: CALC OSMOLALITY 284 mosm/kg (275-300); CALCIUM 7.6 mg/dL (8.5-10.1); CARBON DIOXIDE 25.7 mmol/L (21.0-32.0); CHLORIDE - SERUM 109 mmol/L (98-107); CREATININE - SERUM 0.6 mg/dL (0.6-1.3); GLUCOSE 95 mg/dL (74-106); POTASSIUM - SERUM 3.8 mmol/L (3.5-5.1); SODIUM 144 mmol/L (136-145); UREA NITROGEN 6 mg/dL (7-18); eGFR NON AFRICAN AMERICAN > 90 mL/min (90-120)
--- NOTE | 2016-10-02 07:48 | NUR ---
REPORT RECEIVED. ASSUMED CARE OF PATIENT. PT AWAKE AND RESTING QUIETLY. VOICES NO NEEDS AT THIS TIME. BREAKFAST TRAY PROVIDED AND PT SET UP TO EAT.
--- NOTE | 2016-10-02 08:24 | NUR ---
DR GONSALES HAS BEEN IN TO SEE PATIENT. PACEMAKER INTERROGATION COMPLETE. POSSIBLE D/C TODAY.
--- NOTE | 2016-10-02 09:18 | NUR ---
FAMILY AT BEDSIDE FOR 9AM VISITATION. LET THEM KNOW OF POSSIBLE DISCHARGE LATER TODAY. AWAITING DR CASTILLO TO ROUND.
--- NOTE | 2016-10-02 09:36 | NUR ---
NUTRITION MONITORING & EVAL CHART REVIEWED. PT VISIT. TOLERATING AHA DIET. PT REPORTS "I NEVER EAT MUCH". WILL CONTINUE TO PROVIDE DIET. RD FOLLOWING
--- NOTE | 2016-10-02 09:49 | NUR ---
IV FLUIDS STOPPED AND AND PIV SALINE LOCKED PER ORDER. WILL D/C DSOUZA ONCE FAMILY LEAVES.
--- NOTE | 2016-10-02 10:13 | NUR ---
DS[facility]ZA CATHETER REMOVED. TIP INTACT.
--- NOTE | 2016-10-02 11:25 | NUR ---
PT HAS BEEN UP TO WALK WITH PHYSICAL THERAPIST. REQUIRED WALKER FOR STABILITY. WAS INSTRUCTED UPON DISCHARGE THAT SHE NEEDS TO USE HER WALKER AT ALL TIMES FOR THE NEXT FEW DAYS UNTIL SHE IS STRONGER. IS CURRENTLY SITTING UP IN CHAIR AT BEDSIDE
--- NOTE | 2016-10-02 12:01 | NUR ---
SPOKE WITH DR LEWIS ABOUT PT DISCHARGE FOLLOW UP. HE WOULD LIKE TO SEE HER IN 4 WEEKS. OFFICE CALLED AND FOLLOW UP IS FOR NOV 05 AT 2:15. PT FOLLOW UP WITH DR GONSALES WILL BE OCT 24 AT 10:00.
--- NOTE | 2016-10-02 13:52 | NUR ---
PT ASSISTED UP TO TOILET. USE OF WALKER REQUIRED. FOLLOW UP APPOINTMENT WITH DR ERICKSON MADE FOR 10/17 AT 10:00
--- NOTE | 2016-10-02 13:57 | NUR ---
10/02/2016 13:55 DCP: Discharge Planning Patient Name: SUZIE PRICE Encounter No: [id number] : 1930 Primary Insurance: MEDICARE A & B Anticipated DC Date: 10-03-2016 Planned Disposition: Home DCP follow-up note: DC order rec'd. Patient and family in agreement with discharge plan. No changes to plan. Family will go by the loan closet to pick up attendant a toilet seat riser. Terri Ling
--- NOTE | 2016-10-02 15:04 | NUR ---
DISCHARGE TEACHING PROVIDED. PIV REMOVED, TIP INTACT. FOLLOW UP APPOINTMENTS REVIEWED WITH PT, AND .
== END 2016-10-02 15:05 | disposition home or self-care (01) | DRG 242 ==
LOC: D.ER 11:19 → D.MS 11:45 → D.ICU 11:45 → D.MS 11:45 → OBSVTIME 11:45 → D.ICU 11:45 → D.CVICU 09-30 08:34 → D.ICU 09-30 08:34 → D.CVICU 10-01 08:55
PROVIDERS: Internal Medicine Cardiovascular Disease; Internal Medicine Interventional Cardiology; ADMIT Emergency Medicine
PROC: 0T9B70Z Drainage of Bladder with Drainage Device, Via Natural or Artificial Opening (ICD-10-PCS; 2016-09-30)
PROC: 5A1223Z Performance of Cardiac Pacing, Continuous (ICD-10-PCS; principal; 2016-09-30 09:55)
PROC: 0JH606Z Insertion of Pacemaker, Dual Chamber into Chest Subcutaneous Tissue and Fascia, Open Approach (ICD-10-PCS; 2016-10-01)
PROC: 02H63JZ Insertion of Pacemaker Lead into Right Atrium, Percutaneous Approach (ICD-10-PCS; 2016-10-01)
PROC: 02HK3JZ Insertion of Pacemaker Lead into Right Ventricle, Percutaneous Approach (ICD-10-PCS; 2016-10-01)
DX: I44.2 Atrioventricular block, complete (principal); I46.9 Cardiac arrest, cause unspecified; N39.0 Urinary tract infection, site not specified; I49.5 Sick sinus syndrome; E78.5 Hyperlipidemia, unspecified; I10 Essential (primary) hypertension; M54.30 Sciatica, unspecified side

== ENCOUNTER 2018-08-13 09:32 | Inpatient (IN) | payer MEDICARE, BC ==
[~2018-08-13] VITALS: Ht 152.4 cm; Wt 61.7 kg
--- NOTE | ~2018-08-13 | HEMODYNAMI ---
PATIENT:SUZIE PRICE MEDICAL RECORD: [id number] : 30 LOCATION:[facility] D.7 ADMISSION DATE: 08/13/18 Generatedon:08/14/20188:44 Patient name: SUZIE PRICE Patient #: [id number] SSN: D OB: 1930 Date of study: 08/14/2018 Page: Of Hemodynamic Procedure Report Patient Data Patient Demographics Procedure consent was obtained First Name: SUZIE Gender: Female Last Name: ALBERT : 1930 Patient #: [id number] Age: 87 year(s) Race: Unknown Additional ID: [id number] Contact details Address: [address] [place] [address] State: [place] City: [place] Zip code: [address] Past Medical History Allergies Allergen Reaction Date Comments Reported Sulfa drugs 09/30/2016 Other allergy 08/14/2018 sulfa Admission Admission Data Admission Date: 08/13/2018 Admission Time: 12:15 Admit Source: Other Room #: D.7 Weight (lbs.): 134.48 Weight (kg.): 61 Lab Results Lab Result Date: 08/14/2018 Lab Result Time: 3:16 Biochemistry Name Units Result Min Max BUN mg/dl 17 --(---*)-- 7 18 Creatinine mg/dl 0.8 --(-*--)-- 0.6 1.3 CBC Name Units Result Min Max Hematocrit % 42.1 --(*---)-- 42 54 Hemoglobin g/dl 14.3 --(*---)-- 13.5 17.5 Procedure Procedure Types Cath Procedure Diagnostic Procedure C Coronaries only Sedation Charges Moderate Sedation up to 30 minutes PCI Procedure Coronary Stent Coronary Stent Initial Coronary Stent Additional PTCA PTCA Initial Procedure Description Procedure Date Procedure Date: 08/14/2018 Procedure Start Time: 8:07 Procedure End Time: 8:43 Procedure Staff Name Function Cecil Chung MD Performing Physician Franklin Torres RT Monitor Shameka Chirinos RT Scrub Jose Luis Warren RN Nurse Procedure Data Cath Procedure Fluoroscopy Diagnostic fluoroscopy Total fluoroscopy Time: 9.3 time: 9.3 min min Diagnostic fluoroscopy Total fluoroscopy dose: 693 dose: 693 mGy mGy Contrast Material Contrast Material Type Amount (ml) Isovue 370 119 Entry Location Entry Primary Successful Side Size Upsize Upsize Entry Closure Succes sful Closure Location (Fr) 1 (Fr) 2 (Fr) Remarks Device Remarks Femoral Right 5 Fr 6 Fr Exoseal artery Short Estimated blood loss: 10 ml Diagnostic catheters Device Type Used For End Catheter Placement MULTIPACK Pigtail 5 Fr Procedure catheter MULTIPACK JL 4.0 5Fr Procedure catheter MULTIPACK 3DRC 5Fr Procedure catheter Procedure Complications No complications Procedure Medications Medication Administration Route Dosage Oxygen etCO2 Nasal cannula 2 l/min Lidocaine 2% added to field 20 Heparin Flush Bag added to field 2 bags (1000units/500ml NS) 0.9% NaCl I.V. 100 ml/hr Versed I.V. 0.5 mg Fentanyl I.V. 25 mcg Versed I.V. 0.5 mg Fentanyl I.V. 25 mcg Heparin Bolus I.V. 4000 units Fentanyl I.V. 25 mcg Plavix P.O. 75 mg Hemodynamics Rest HGB: 14.3 (g/dl) Heart Rate: 82 (bpm) Snapshots Pre Cath Intra NCS Post Cath Vital Signs Time Heart Resp SPO2 etCO2 NIBP (mmHg) Rhythm Pain Sedation Rate (ipm) (%) (mmHg) Status Level (bpm) 7:54:21 80 30 96 0 148/80(130) NSR 0 (11) 10(A) , No pain 7:58:37 80 25 93 0 126/74(109) NSR 0 (11) 10(A) , No pain 8:03:28 80 25 100 0.7 135/73(105) NSR 0 (11) 10(A) , No pain 8:07:44 79 16 95 10.5 120/66(106) NSR 0 (11) 10(A) , No pain 8:11:58 80 13 96 12.7 119/58(93) NSR 0 (11) 9(A) , No pain 8:16:06 80 13 96 11.2 113/62(92) NSR 0 (11) 9(A) , No pain 8:20:22 80 14 97 10.5 109/53(75) NSR 0 (11) 9(A) , No pain 8:24:36 83 14 97 15.8 105/54(84) NSR 0 (11) 9(A) , No pain 8:28:46 80 15 97 15.8 110/60(81) NSR 0 (11) 9(A) , No pain 8:33:00 80 15 97 11.2 102/54(87) NSR 0 (11) 10(A) , No pain 8:37:10 79 15 98 15 107/55(92) NSR 0 (11) 9(A) , No pain 8:42:02 98 0 147/83(122) NSR 0 (11) 9(A) , No pain Medications Time Medication Route Dose Verified Delivered Reason Notes Effectiveness by by 7:54:53 Oxygen etCO2 2 Cecil Buffie used for Nasal l/min Juliet Warren RN procedure cannula 7:55:01 Lidocaine 2% added 20ml Cecil Cecil for local to vial Juliet Chung MD anesthetic field 7:55:07 Heparin Flush added 2 Cecil Cecil used for Bag to bags Juliet Chung MD procedure (1000units/500ml field NS) 7:55:15 0.9% NaCl I.V. 100 Cecil Buffie Per physician ml/hr Juliet Warren RN 8:03:45 Versed I.V. 0.5 Cecil Buffie for sedation mg Juliet Warren RN 8:03:51 Fentanyl I.V. 25 Cecil Buffie for sedation mcg Juliet Warren RN 8:08:25 Versed I.V. 0.5 Cecil Buffie for sedation mg Juliet Warren RN 8:08:28 Fentanyl I.V. 25 Cecil Buffie for sedation mcg Juliet Warren RN 8:13:41 Heparin Bolus I.V. 4000 Cecil Amaya for verifi ed units Juliet Warren RN anticoagulation with dr chung 8:19:09 Fentanyl I.V. 25 Cecil Buffie for sedation mcg Juliet Warren RN 8:34:16 Plavix P.O. 75 mg Cecil Amaya for Juliet Warren RN antiplatelet therapy Procedure Log Time Note 7:22:45 Informed consent obtained and on chart 7:23:15 Admit Source: Other 7:23:39 Diagnostic Cath status Urgent 7:24:20 H&P Date Dictated: 08/13/2018 Within 30 days and on chart.. 7::19 Lab Result : Creatinine 0.8 mg/dl 7::19 Lab Result : BUN 17 mg/dl 7::19 Lab Result : Hematocrit 42.1 % 7::19 Lab Result : Hemoglobin 14.3 g/dl 7::22 Lab results completed and on chart. 7:34:18 Patient Weight : 134.48 lbs 7:34:25 Time tracking: Regular hours (M-F 7:00 - 5:00) 7:34:29 Plan of Care:Hemodynamics will remain stable., Cardiac rhythm will remain stable., Comfort level will be maintained., Respiratory function will remain adequate., Patient/ family verbilizes understanding of procedure., Procedure tolerated without complication., Recovers from procedure without complications.. 7:34:45 Patient allergic to Other allergysulfa 7:38:32 Shameka Counts RT(R) sent for patient. Start room use. 7:52:59 Patient received from Med II to CCL 1 Alert and oriented. Tansferred to table in Supine position. 7:53:00 Warm blankets applied, and reinaldo hugger turned on for patient comfort. 7:53:01 Correct patient and procedure confirmed by team. 7:53:01 ECG and BP/O2 sat monitors applied to patient. 7:53:02 Baseline sample Acquired. 7:53:02 Vital chart was started 7:53:06 Rhythm: sinus rhythm , paced 7:53:07 Full Disclosure recording started 7:53:11 Pre-procedure instructions explained to patient. 7:53:11 Pre-op teaching completed and patient verbalized understanding. 7:53:13 Family unavailable. 7:53:14 Patient NPO since Midnight. 7:54:53 Oxygen 2 l/min etCO2 Nasal cannula was administered by Jose Luis Warren RN; used for procedure; 7:55:01 Lidocaine 2% 20ml vial added to field was administered by Cecil Chung MD; for local anesthetic; 7:55:07 Heparin Flush Bag (1000units/500ml NS) 2 bags added to field was administered by Cecil Chung MD; used for procedure; 7:55:15 0.9% NaCl 100 ml/hr I.V. was administered by Jose Luis Warren RN; Per physician; 7:59:13 Is the patient allergic to Iodine/contrast media? No. 7:59:15 Is patient on blood thinner?Yes 7:59:20 ACC The patient was administered the following blood thiners within the last 24 hours: ACCPlavix 7:59:39 Patient diabetic? No. 7:59:42 Previous problem with sedation/anesthesia? No ? 7:59:44 Snore? Yes 7:59:45 Sleep apnea? No 7:59:46 Deviated septum? No 7:59:47 Opens mouth fully? Yes 7:59:51 Sticks out tongue? Yes 7:59:53 Airway obstruction? No ? 7:59:57 Dentures? No ? 8:00:02 Pre procedure: right dorsailis pedis pulse 1+ Palpable, but thready & weak; easily obliterated 8:00:04 Patient pain scale 0/10 ?. 8:00:10 IV patent on arrival in right wrist with 0.9% NaCl at KVO. 8:00:14 Right groin area was prepped with chlora-prep and draped in sterile fashion 8:00:15 Alarms reviewed by R. N. 8:00:15 Sharps counted by scrub and verified by R.N. 8:00:17 Use device set Femoral Dx 8:00:18 ACIST Syringe ([id number]) opened to sterile field. 8:00:19 Bag Decanter (2002S) opened to sterile field. 8:00:19 Medline Cath Pack ([id number]) opened to sterile field. 8:00:20 ACIST Hand Control (09194) opened to sterile field. 8:00:21 ACIST Manifold (18731) opened to sterile field. 8:00:21 Tegaderm 4 x 4 (1626W) opened to sterile field. 8:00:22 SHEATH 5FR Anderson ([id number]) opened to sterile field. 8:00:23 DIAGNOSTIC Multipack 5Fr catheter set (JX8823) opened to sterile field. 8:00:24 DIAGNOSTIC WIRE .035 260cm J wire (163531) opened to sterile field. 8:02:14 Physician arrived 8:02:14 --------ALL STOP TIME OUT------ 8:02:15 Final Timeout: patient, procedure, and site verified with staff and physician. All members of the team are in agreement. 8:02:16 Right groin site verified by team. 8:02:19 Maximum allowable Isovue 300 dose 300ml. Physician notified. (300ml for normal creatinines. For patients with creatinine of 1.7 or higher multiply weight(kg) x 5 divided by creatinine.) 8:03:08 Fire Safety Assessment: A--An alcohol-based skin anteseptic being used preoperatively., C--Open oxygen or nitrous oxide is being used., D--An ESU, laser, or fiber-optic light is being used. 8:03:14 Physical assessment completed. ASA score P 2 - A patient with mild systemic disease as per Cecil Chung MD. 8:03:18 Sedation plan: IV Moderate Sedation Medication:Versed, Fentanyl 8:03:45 Versed 0.5 mg I.V. was administered by Jose Luis Warren RN; for sedation; 8:03:51 Fentanyl 25 mcg I.V. was administered by Jose Luis Warren RN; for sedation; 8:04:48 Zero performed for pressure channel P1 8:07:41 Procedure started. 8:07:44 Local anesthetic to right femoral artery with Lidocaine 2% by Cecil Chung MD.INITIAL ACCESS ONLY 8:07:51 A 5 Fr sheath was inserted into the Right Femoral artery 8:08:25 Versed 0.5 mg I.V. was administered by Jose Luis Warren RN; for sedation; 8:08:28 Fentanyl 25 mcg I.V. was administered by Jose Luis Warren RN; for sedation; 8:08:41 A MULTIPACK Pigtail 5 Fr catheter was advanced over the wire and used for Procedure. 8:09:42 catheter removed, unable to cross valve. 8:09:49 A MULTIPACK JL 4.0 5Fr catheter was advanced over the wire and used for Procedure. 8:10:26 LCA angiography performed. 8:11:10 Catheter exchanged over wire. 8:11:14 A MULTIPACK 3DRC 5Fr catheter was advanced over the wire and used for Procedure. 8:11:51 SHEATH 6FR Anderson (UTZ266) opened to sterile field. 8:12:02 CHOICE PT Extra Support 182cm wire ([id number]) opened to sterile field. 8:12:03 INFLATOR Nishi Butler (HL5008) opened to sterile field. 8:12:08 RCA angiography performed. 8:12:19 Catheter removed. 8:12:30 Sheath upsized to a 6 Fr Short. 8:12:44 GUIDE 6FR XBLAD 3.5 catheter ([id number]) opened to sterile field. 8:12:53 6 Fr XBLAD 3.5 guide catheter was inserted over the wire 8:13:41 Heparin Bolus 4000 units I.V. was administered by Jose Luis Warren RN; for anticoagulation; verified with dr chung 8:14:16 CHOICE PT Extra Support 182cm wire ([id number]) opened to sterile field. 8:14:28 1ST CHOICE PT ES wire advanced down LAD. 8:14:46 Wire advanced across lesion. 8:15:04 2nd choice pt es wire advanced down 1st diag. 8:15:55 Wire advanced across lesion. 8:17:36 The CATHLEEN RX 2.25 x 18 stent ([id number]) was advanced then removed because of failure to cross lesion 8:18:42 Inflate balloon Inflation number: 1 A EUPHORA 2.0 x 15 Balloon ([id number]) was prepped and advanced across the Prox LAD, then inflated to 17 NIKKO for 0:10 (min:sec). 8:18:50 Inflation number: 2 The EUPHORA 2.0 x 15 Balloon ([id number]) was reinflated across the Prox LAD, to 17 NIKKO for 0:10 (min:sec). 8:19:09 Fentanyl 25 mcg I.V. was administered by Jose Luis Warren RN; for sedation; 8:19:25 Balloon removed over the wire. 8:20:45 The CATHLEEN RX 2.25 x 18 stent ([id number]) was advanced then removed because of failure to cross lesion 8:21:25 Inflation number: 3 The EUPHORA 2.0 x 15 Balloon ([id number]) was reinflated across the Prox LAD, to 21 NIKKO for 0:10 (min:sec). 8:21:53 Balloon removed over the wire. 8:23:07 Inflate balloon Inflation number: 4 A EUPHORA 2.5 x 20 Balloon ([id number]) was prepped and advanced across the Prox LAD, then inflated to 13 NIKKO for 0:10 (min:sec). 8:23:20 Balloon removed over the wire. 8:25:15 The CATHLEEN RX 2.25 x 18 stent ([id number]) was advanced then removed because of failure to cross lesion 8:25:19 EXOSEAL 6Fr (EX600) opened to sterile field. 8:25:19 CHOICE PT Extra Support 182cm wire ([id number]) opened to sterile field. 8:26:14 Place stent Inflation Number: 1 A CATHLEEN RX 2.25 x 18 stent ([id number]) was prepped and advanced across the 1st Diag. The stent was deployed at 21 NIKKO for 0:10 (min:sec). 8:27:31 Stent catheter was removed intact over wire. 8:27:32 Wire removed. 8:27:51 Wire redirected to CX. 8:28:02 Wire advanced across lesion. 8:29:55 Place stent Inflation Number: 1 A CATHLEEN RX 3.5 x 18 stent ([id number]) was prepped and advanced across the Prox CX. The stent was deployed at 15 NIKKO for 0:15 (min:sec). 8:30:01 Stent catheter was removed intact over wire. 8:30:02 Wire removed. 8:30:02 Guide catheter removed. 8:34:16 Plavix 75 mg P.O. was administered by Jose Luis Warren RN; for antiplatelet therapy; 8:35:39 Sheath removed intact; hemostasis achieved with Exoseal to the Right Femoral artery. 8:35:43 Procedure ended.(Physican Out) 8:35:56 FEMSTOP Gold ([id number]) opened to sterile field. 8:36:01 Femstop placed over the right femoral artery at 160 mmHg. Hemostasis achieved. 8:38:27 Fluoroscopy time 09.30 minutes. 8:38:40 Flurop Dose total: 693 8:38:40 Fluoroscopy dose: 693 mGy 8:38:45 Contrast amount:Isovue 370 119ml. 8:38:51 Sharps counted by scrub and verified by R.N. 8:38:51 Insertion/operative site no bleeding no hematoma. 8:38:54 Post-op/insertion site Right Femoral artery dressed using a 4 x 4 and Tegaderm. 8:39:16 Post-procedure physical assessment completed. ASA score P 2 - A patient with mild systemic disease as per Cecil Chung MD. 8:39:28 Post procedure rhythm: unchanged. 8:39:46 Estimated blood loss: 10 ml 8:39:47 Post procedure instruction explained to patient.Patient verbalizes understanding. 8:39:47 Patient needs reinforcement of post procedure teaching. 8:41:39 Procedure type changed to Cath procedure, Diagnostic procedure, LHC, Coronaries only, Sedation Charges, Moderate Sedation up to 30 minutes, PCI procedure, Coronary Stent, Coronary Stent Initial, Coronary Stent Additional, PTCA, PTCA Initial 8:43:45 Procedure and supply charges have been captured, reviewed, submitted and are correct. 8:43:47 Procedure Complication : No complications 8:43:49 Vital chart was stopped 8:43:49 See physician's report for complete and final results. 8:43:53 Report given to PCU. 8:43:55 Patient transfered to PCU with Stretcher. 8:43:57 Procedure ended. 8:43:57 Full Disclosure recording stopped 8:44:01 End room use (Document Last) Intervention Summary Intervention Notes Time ActionType Lesion and Equipment Used Action# Pressure Duration Attributes 8:17:36 Discard CATHLEEN RX 2.25 x Stent 18 stent ([id number]) 8:18:42 Inflate Prox LAD EUPHORA 2.0 x 1 17 00:10 balloon 15 Balloon ([id number]) 8:18:50 Reinflate Prox LAD EUPHORA 2.0 x 2 17 00:10 balloon 15 Balloon ([id number]) 8:20:45 Discard CATHLEEN RX 2.25 x Stent 18 stent ([id number]) 8:21:25 Reinflate Prox LAD EUPHORA 2.0 x 3 21 00:10 balloon 15 Balloon ([id number]) 8:23:07 Inflate Prox LAD EUPHORA 2.5 x 4 13 00:10 balloon 20 Balloon ([id number]) 8:25:15 Discard CATHLEEN RX 2.25 x Stent 18 stent ([id number]) 8:26:14 Place stent 1st Diag CATHLEEN RX 2.25 x 1 21 00:10 18 stent ([id number]) 8:29:55 Place stent Prox CX CATHLEEN RX 3.5 x 1 15 00:15 18 stent ([id number]) Device Usage Item Name Manufacture Quantity Catalog Number Hospital Part Current M inimal Lot# / Charge Number Stock Stock Serial# Code ACIST Syringe Acist 1 42684 903399 623952 690492 2 0 (66367) Medical Systems Inc Bag Decanter Microtek 1 2001S 451448 40955 755034 5 (2001S) Medical Inc. Medline Cath Medline 1 [id number] 512036 67265 328495 5 Pack ([id number]) ACIST Hand Acist 1 04073 593410 427884 933103 5 Control Medical (19626) Systems Inc ACIST Manifold Acist 1 51773 327325 183397 151839 5 (11241) Medical Systems Inc Tegaderm 4 x 4 3M 1 1626W 066005 113319 946409 5 (1626W) SHEATH 5FR Terumo 1 FML307 863882 243046 755856 5 Anderson (KLP806) DIAGNOSTIC Cardinal 1 PB7904 630452 33080 246710 3 0 Multipack 5Fr Health catheter set (JB8845) DIAGNOSTIC [facility] 1 895790 196308 441127 138406 3 0 WIRE .035 260cm J wire (532141) MULTIPACK Cardinal 1 263343 5 Pigtail 5 Fr Health catheter MULTIPACK JL Cardinal 1 941974 5 4.0 5Fr Health catheter MULTIPACK 3DRC Cardinal 1 586646 5 5Fr catheter Health SHEATH 6FR Terumo 1 XZH798 826758 036123 996522 4 0 Anderson (VWD252) CHOICE PT Kerkhoven 3 [id number] 665685 412313 416596 5 Extra Support Scientific 182cm wire ([id number]) INFLATOR Merit Merit 1 OE6659 563027 339298 683392 1 5 Motosmarty (RI7050) GUIDE 6FR Cardinal 1 [id number] 403874 650546 166143 1 0 XBLAD 3.5 Health catheter (63979427) CATHLEEN RX 2.25 x Medtronic 1 [id number] 280326 5095018 292901 5 [id number] 18 stent ([id number]) EUPHORA 2.0 x Medtronic 1 [id number] 892383 044976 257112 5 [id number] 15 Balloon ([id number]) EUPHORA 2.5 x Medtronic 1 [id number] 166312 217978 279504 5 [id number] 20 Balloon ([id number]) CATHLEEN RX 3.5 x Medtronic 1 [id number] 366886 4895044 167948 5 [id number] 18 stent ([id number]) FEMSTOP Gold [facility] 1 [id number] 485152 489967 462020 5 (Q75895) EXOSEAL 6Fr Cardinal 1 EX600 328192 037265 039266 1 0 (EX600) Health Signature Audit [place] Stage Time Signature Unsigned Intra-Procedure 08/14/2018 Franklin Torres 8:44:31 AM RT(R) Signatures Monitor : Franklin Torres RT Signature : Date : Time : [place] [id number] [facility] [place] [address]
--- NOTE | ~2018-08-13 | EC ---
PATIENT:SUZIE PRICE DATE OF SERVICE: 08/13/18 SEX: F MEDICAL RECORD: [id number] DATE OF : 30 LOCATION:D.M2 D.211 AGE OF PATIENT: 87 ADMISSION DATE: 08/13/18 REFERRING PHYSICIAN: INTERPRETING PHYSICIAN: CESAR CHUNG MD ECHOCARDIOGRAM REPORT ECHO CHARGES 4 ECHO COMPLETE Date: 08/13/18 CLINICAL DIAGNOSIS: IL ECHOCARDIOGRAPHIC MEASUREMENTS (adult normal given) AC root (d.<3.7cm) 3.0 cm LV Septum d (<1.2 cm> 1.6 cm Valve Excursion 0.6 cm LV Septum (systole) 1.9 cm Left Atria (s.<4.0cm> 3.4 cm LVPW d(<1.2cm) 1.4 cm RV (d.<2.3cm) 3.0 cm LVPW (sytole) 1.8 cm LV diastole(<5.6CM) 5.1 cm MV E-F(>70mm/sec) cm LV systole 3.7 cm LVOT Diameter 1.7 cm MV exc.(>10mm) cm Est.ejection fraction (50-75%) % DOPPLER: LVIT cm/sec A 125 cm/sec E 86.0 cm/sec LA cm/sec RVSP 60.0 mmHg LVOT 56.0 cm/sec AOP1/2T m/s Asc. Ao 478 cm/sec RVOT 123 cm/sec RA cm/sec PA 50.0 cm/sec AV Gradient Peak 91.2 mmHg AV Mean 57.0 mmHg AV Area 0.2 cm MV Gradient Peak 6.1 mmHg MV Mean 2.2 mmHg MV Area cm COMMENTS: Database Management System Specialist: Rodolfo ZAMORANOOE Paving Rammer: 1 Dr. Chung TAPE# PACS Pericardial Effusion N DATE OF SERVICE: 08/13/2018 FINDINGS: 1. Left ventricular chamber size is mildly dilated. Left ventricular systolic function is markedly reduced. Overall ejection fraction is 20%. 2. Left atrium, right atrium, and right ventricular chamber sizes are within normal limit. 3. Valvular structures: Aortic valve demonstrates severe calcific aortic stenosis. Valve area calculates to less than 0.5 cm-squared with gradient of 91 mm across the valve. The remaining valvular structures have normal structure ECHOCARDIOGRAM REPORT [id number] SUZIE PRICE and motion. 4. Doppler interrogation reveals moderate mitral regurgitation and mild tricuspid regurgitation. No other valvular insufficiency or stenosis. Pulmonary systolic pressure is elevated, estimated at 60 mmHg. 5. No evidence of pericardial effusion or left ventricular thrombus. TRANSINT:[id number] Voice Confirmation ID: [id number] DOCUMENT ID: [id number] CESAR CHUNG MD CC: [id number] DICTATION DATE: 08/13/181719 SERVICE DESK TEAM LEAD: 08/13/182013 ADM IN [facility] [address] [place] [address]
--- NOTE | ~2018-08-13 | OP ---
PATIENT NAME: SUZIE PRICE MEDICAL RECORD: [id number] :30 LOCATION:D.M2 D.2117 ADMISSION DATE:08/13/18 SURGEON: CESAR LEWIS MD DATE OF OPERATION: 08/14/2018 PROCEDURES: 1. PTCA stent left circumflex. 2. PTCA stent LAD diagonal. 3. PTCA, LAD. 4. Left heart catheterization. 5. Selective coronary angiography. INDICATION: Non-Q-wave myocardial infarction. DESCRIPTION OF PROCEDURE: After informed consent was obtained and after a detailed description of risks, benefits as well as alternative therapies, the patient elected to proceed with angiogram and angioplasty. The right femoral area was prepped and draped in normal sterile fashion. Right femoral artery was cannulated via modified Seldinger technique with placement of 6-Bahraini sheath. All catheters exchanged through this sheath. FINDINGS: The left ventriculogram was not performed secondary to inability to cross the aortic valve due to severe aortic stenosis. SELECTIVE CORONARY ANGIOGRAPHY: 1. Left main is with no significant angiographic disease. 2. Left anterior descending has actually a larger diagonal in the LAD. The diagonal is 95% stenosed. The LAD is 95% stenosed after that as well. 3. The left circumflex has 90% stenosis in the mid vessel. 4. The right coronary artery has moderate irregularities, but no flow-limiting stenosis. PTCA STENT OF THE LAD DIAGONAL: We initially ballooned the LAD; however, no stent would go due to the heavy calcification. We turned our attention to the larger diagonal, placed a 2.25 x 18 mm [place] stent. Result was 0% residual stenosis. PTCA STENT OF THE LEFT CIRCUMFLEX: The stent used was a 3.5 x 18 mm [place]. Result was 0% residual stenosis. OVERALL IMPRESSION: Successful percutaneous transluminal coronary angioplasty stent of the left anterior descending diagonal and circumflex, both going from 90% to 95% initial stenosis to 0% residual. TRANSINT:[id number] Voice Confirmation ID: [id number] DOCUMENT ID: [id number] CESAR LEWIS MD CC: [id number] DICTATION DATE: 08/14/18 0844 PARTNER MANAGER: 08/14/18 1145 ADM IN [facility] [address] [place] [address]
[2018-08-13] MEDS ORDERED: CENTRUM SILVER1 EAC3 PO (09:43)
[2018-08-13] MEDS ORDERED: COZAAR25 MG PO (09:43)
[2018-08-13] MEDS ORDERED: METOPROLOL TART25 MG PO (09:45)
[2018-08-13 10:00] VITALS: BP 136/78
[2018-08-13 10:27] LABS: BASOPHILS 0.3 % (0-2); EOSINOPHILS 0.6 % (0-7); HEMATOCRIT 42.1 % (36.0-48.0); HEMOGLOBIN 14.3 g/dL (12-16); IMMATURE GRANULOCYTES 0.1 % (0-5); LYMPHOCYTES 14.2 % (15-50); MCV 102.9 fL (80.0-100.0); MEAN PLATELET VOLUME 9.8 fL (7.4-10.4); MONOCYTES 10.2 % (2-11); NEUTROPHILS 74.6 % (40-80); PLATELET COUNT 156 10x3/uL (130-400); RBC 4.09 10x6/uL (4.00-5.40); RDW 15.5 % (11.5-14.5)
[2018-08-13 10:36] LABS: INR 1.17 (0.85-1.17); PROTIME 14.4 SECONDS (11.6-15.0)
[2018-08-13 10:37] LABS: APTT 30.2 SECONDS (22.8-39.4)
[2018-08-13 10:43] LABS: ALBUMIN 3.4 g/dL (3.4-5.0); ANION GAP 12.4 mmol/L (8-16); BILIRUBIN - TOTAL 0.73 mg/dL (0.2-1.3); CALCIUM 9.1 mg/dL (8.5-10.1); CARBON DIOXIDE 27.3 mmol/L (21.0-32.0); CREATININE - SERUM 0.9 mg/dL (0.6-1.3); POTASSIUM - SERUM 4.7 mmol/L (3.5-5.1); PROTEIN - SERUM 7.4 g/dL (6.4-8.2)
[2018-08-13 10:59] LABS: MAGNESIUM - SERUM 2.1 mg/dL (1.8-2.4); THYROID STIMULATING HORMONE 2.45 uIU/mL (0.36-3.74)
[2018-08-13 11:02] VITALS: BP 144/79
[2018-08-13 11:07] LABS: TROPONIN-I 0.072 ng/mL (0.000-0.060)
[2018-08-13 11:23] LABS: APPEARANCE HAZY (CLEAR); BACTERIA MODERATE /hpf (NONE SEEN); BILIRUBIN NEGATIVE (NEGATIVE); COLOR YELLOW (YELLOW); EPITHELIAL CELLS 0-5 /hpf (0-5); GLUCOSE NEGATIVE (NEGATIVE); KETONE NEGATIVE (NEGATIVE); MUCUS <1+ /lpf (NONE SEEN); NITRITE NEGATIVE (NEGATIVE); PROTEIN TRACE mg/dL (NEGATIVE); UROBILINOGEN NORMAL (NORMAL); WHITE CELLS - URINE OCC /hpf (0-5)
[2018-08-13 12:00] VITALS: BP 144/81
[2018-08-13 14:52] VITALS: BP 129/70; BMI 26.4
[2018-08-13 15:38] VITALS: BP 129/70
[2018-08-13 20:00] VITALS: BP 121/66
[2018-08-14] VITALS: BP 131/77
[2018-08-14 00:46] LABS: CKMB 1.6 U/L (0.0-3.6); CREATINE KINASE 43 UL (21-215)
[2018-08-14 03:42] LABS: BASOPHILS 0.4 % (0-2); EOSINOPHILS 1.4 % (0-7); HEMATOCRIT 42.1 % (36.0-48.0); HEMOGLOBIN 14.3 g/dL (12-16); IMMATURE GRANULOCYTES 0.3 % (0-5); LYMPHOCYTES 19.2 % (15-50); MCH 34.7 pg (26.0-34.0); MCV 102.2 fL (80.0-100.0); MEAN PLATELET VOLUME 9.9 fL (7.4-10.4); MONOCYTES 9.9 % (2-11); NEUTROPHILS 68.8 % (40-80); PLATELET COUNT 169 10x3/uL (130-400); RBC 4.12 10x6/uL (4.00-5.40); RDW 15.4 % (11.5-14.5); WBC 7.2 10x3/uL (4.8-10.8)
[2018-08-14 04:12] LABS: CALC OSMOLALITY 280 mosm/kg (275-300); CALCIUM 8.6 mg/dL (8.5-10.1); CARBON DIOXIDE 26.4 mmol/L (21.0-32.0); CHLORIDE - SERUM 104 mmol/L (98-107); CKMB 2.2 U/L (0.0-3.6); CREATINE KINASE 50 UL (21-215); CREATININE - SERUM 0.8 mg/dL (0.6-1.3); GLUCOSE 107 mg/dL (74-106); SODIUM 140 mmol/L (136-145); UREA NITROGEN 17 mg/dL (7-18); eGFR NON AFRICAN AMERICAN 72 mL/min (90-120)
[2018-08-14 04:13] LABS: TROPONIN-I 0.071 ng/mL (0.000-0.060)
--- NOTE | 2018-08-14 08:35 | CN ---
PATIENT NAME:SUZIE PRICE MEDICAL RECORD: [id number] : 30 LOCATION:D. D.2117 ADMIT DATE: 08/13/18 ACCOUNT: [id number] CONSULTING PHYSICIAN: CESAR LEWIS MD REFERRING PHYSICIAN: HARI WHITMAN MD DATE OF CONSULTATION: 08/13/2018 CARDIOLOGY CONSULTATION DIAGNOSES: 1. Non-Q-wave myocardial infarction. 2. Sick sinus syndrome, status post pacemaker. 3. Hypertension. 4. Hyperlipidemia. 5. Hypothyroidism, on replacement. HISTORY OF PRESENT ILLNESS: Mrs. Price presents with 1-week of shortness of breath and chest pressure. Symptomatology has worsened over the past week. She had severe episodes last night. Her troponin is elevated. Her EKG only shows a paced rhythm. She has not had a history of ischemic heart disease. She does have the history obviously with a pacemaker. She is on metoprolol and Cozaar for medical management. Heart rate is in the 80s, systolic blood pressures in the 130s. PHYSICAL EXAMINATION: GENERAL APPEARANCE: Well-nourished, well-developed, appears stated age. Level of distress, comfortable. PSYCHIATRIC: Mental status, alert, normal affect. Orientation, oriented to time, place and person. EYES: Lids and conjunctiva, noninjected. No discharge, no pallor. ENT: Lips, teeth, gums, normal dentition. Oropharynx, no cyanosis, no pallor. NECK: Carotid arteries, bilateral normal upstroke, no bruits, no thrills. JUGULAR VEINS: No jugular venous pressure or distention. CERVICAL LYMPH NODES: Nontender, nonenlarged. THYROID: Not enlarged. Nontender. No nodules. LUNGS: Respiratory effort, unlabored. CHEST: Normal curvature. No thoracic deformity. No chest wall tenderness. Percussion, resonant. Auscultation, clear. No wheezes, no rales, no rhonchi. CARDIOVASCULAR: Precordial exam, nondisplaced. No heaves or pericardial thrills. Rate and rhythm, regular. Heart sounds, normal S1, normal S2. No S3, no gallop, no rub. Systolic murmur, not heard. Diastolic murmur, not heard. EXTREMITIES: No cyanosis, no edema. Peripheral pulses, full and equal in all extremities, except as noted. No bruits appreciated. ABDOMEN: Soft, nondistended. Normal aorta. No bruit. Nontender. No masses. Liver, nontender, no hepatomegaly. Spleen, nontender, no splenomegaly. MUSCULOSKELETAL: No joint tenderness. No joint swelling. No erythema. NEUROLOGICAL: Normal gait, normal strength, normal tone. SKIN: Warm and dry. OVERALL IMPRESSION: Non-Q-wave myocardial infarction with progressive symptomatology. We will increase her metoprolol to get better heart rate and blood pressure control. Get an echocardiogram today for overall LV function. Proceed with coronary angiography in the a.m., sooner if she has any worsening symptomatology. CONSULT REPORT [id number] SUZIE PRICE TRANSINT:[id number] Voice Confirmation ID: [id number] DOCUMENT ID: [id number] CESAR LEWIS MD at 0835 CC: [id number] DICTATION DATE: 08/13/18 1308 MEDICAL INSURANCE VERIFIER: 08/13/18 1457 ADM IN [place] [id number] [place] [id number]
[2018-08-14] MEDS ORDERED: PLAVIX75 MG PO (11:49)
[2018-08-14] MEDS ORDERED: ASPIRIN81 MG PO (11:50)
[2018-08-14 12:43] VITALS: BP 130/70
[2018-08-14 17:57] VITALS: BP 136/71
[2018-08-14 20:00] VITALS: BP 125/70
[2018-08-14 23:30] VITALS: BP 100/56
[2018-08-15 04:20] VITALS: BP 120/67
[2018-08-15 04:30] LABS: BASOPHILS 0.3 % (0-2); EOSINOPHILS 1.4 % (0-7); HEMATOCRIT 38.9 % (36.0-48.0); IMMATURE GRANULOCYTES 0.2 % (0-5); LYMPHOCYTES 16.9 % (15-50); MCH 34.4 pg (26.0-34.0); MCHC 33.4 g/dL (31.0-37.0); MCV 102.9 fL (80.0-100.0); MONOCYTES 11.2 % (2-11); PLATELET COUNT 150 10x3/uL (130-400); RBC 3.78 10x6/uL (4.00-5.40); RDW 15.5 % (11.5-14.5); WBC 8.9 10x3/uL (4.8-10.8)
[2018-08-15 05:03] LABS: ANION GAP 12.8 mmol/L (8-16); CALCIUM 7.9 mg/dL (8.5-10.1); CREATININE - SERUM 0.8 mg/dL (0.6-1.3); MAGNESIUM - SERUM 2.1 mg/dL (1.8-2.4); PHOSPHOROUS 2.9 mg/dL (2.5-4.9); POTASSIUM - SERUM 3.8 mmol/L (3.5-5.1)
[2018-08-15 08:54] VITALS: BP 117/53
[2018-08-15 11:41] VITALS: BP 110/67
[2018-08-15 12:07] VITALS: Ht 152.4 cm; Wt 61.7 kg
[2018-08-15 16:41] VITALS: BP 120/62
[2018-08-15 20:00] VITALS: BP 121/57
[2018-08-16 03:42] LABS: BASOPHILS 0.2 % (0-2); EOSINOPHILS 2.4 % (0-7); HEMATOCRIT 38.2 % (36.0-48.0); HEMOGLOBIN 12.4 g/dL (12-16); IMMATURE GRANULOCYTES 0.2 % (0-5); LYMPHOCYTES 10.5 % (15-50); MCH 34.1 pg (26.0-34.0); MCHC 32.5 g/dL (31.0-37.0); MEAN PLATELET VOLUME 10.1 fL (7.4-10.4); MONOCYTES 13.4 % (2-11); NEUTROPHILS 73.3 % (40-80); PLATELET COUNT 156 10x3/uL (130-400); RBC 3.64 10x6/uL (4.00-5.40); RDW 15.4 % (11.5-14.5); WBC 9.4 10x3/uL (4.8-10.8)
[2018-08-16 03:52] LABS: ANION GAP 10.6 mmol/L (8-16); CALCIUM 7.9 mg/dL (8.5-10.1); CARBON DIOXIDE 28.6 mmol/L (21.0-32.0); CREATININE - SERUM 0.8 mg/dL (0.6-1.3); MCV 104.9 fL (80.0-100.0); POTASSIUM - SERUM 4.2 mmol/L (3.5-5.1)
[2018-08-16 04:00] VITALS: BP 116/61
[2018-08-16 07:57] VITALS: BP 113/68
[2018-08-16 11:57] VITALS: BP 100/62
--- NOTE | 2018-08-16 13:05 | MORECARE ---
CASE MANAGEMENT DISCHARGE SUMMARY PATIENT: SUZIE PRICE UNIT: [id number] ADM DATE: 08/14/18 AGE: 87 : 30 SEX: F ROOM/BED: D.2117 AUTHOR: TOM BARRETT PHYSICIAN: REFERRING PHYSICIAN: HARI WHITMAN MD DATE OF SERVICE: 08/16/18 Discharge Plan Patient Name: SUZIE PRICE [facility] [facility] 1930 Planned Disposition: Home Anticipated Discharge Date: Discharge Date: Expected LOS: Initial Reviewer: [email or web address] Initial Review Date: 08/16/2018 Generated: 08/16/18 2:05 pm DCP- Discharge Planning Updated by [email or web address]: Sheldon Soliz on 08/14/18 4:[address] Patient Name: SUZIE PRICE Admission Status: ER Accout number: [id number] Admission Date: 08-13-2018 : 1930 Admission Diagnosis: Attending: HARI WHITMAN Current LOS: 1 Anticipated DC Date: Planned Disposition: Primary Insurance: MEDICARE A & B Discharge Planning Comments: CM RECEIVED OXYGEN TESTING INDICATING THAT PT IS 90% ON ROOM AIR AT REST, 80% ON ROOM AIR ON EXERTION AND RECOVERY OF 90% ON 2 LITERS DURING EXERTION. CM SCANNED COPY INTO CASE MANAGEMENT FILE, CM PLACED ORIGINAL INTO CHART. CM WILL ARRANGE HOME OXYGEN WITH PHYSICIAN ORDER; IF PT DOES NOT DISCHARGE PRIOR TO 08-16-18, PT WILL REQUIRE NEW QUALIFYING OXYGEN TESTING TO ARRANGE OXYGEN. CM TO FOLLOW AND ASSIST IF NEEDED. Hospice Clinical Manager: Sheldon Soliz Patient Name: SUZIE PRICE Page [phone] at 1305 All edits/amendments must be made on the electronic document DICTATION DATE: 08/16/18 1305 ENTERTAINMENT MUSICIAN: DENNIS 08/16/18 1305 RPT#: [id number] DC DATE: STATUS: ADM IN [facility] [address] [place] [address] END OF REPORT
--- NOTE | 2018-08-16 13:13 | MORECARE ---
CASE MANAGEMENT DISCHARGE SUMMARY PATIENT: SUZIE PRICE UNIT: [id number] ADM DATE: 08/14/18 AGE: 87 : 30 SEX: F ROOM/BED: D.0480 AUTHOR: NENA,DOC PHYSICIAN: REFERRING PHYSICIAN: HARI WHITMAN MD DATE OF SERVICE: 08/16/18 Discharge Plan Patient Name: SUZIE PRICE Facility: [facility]:[place] : 1930 Planned Disposition: Home Anticipated Discharge Date: Discharge Date: Expected LOS: Initial Reviewer: [id number] Initial Review Date: 08/16/2018 Generated: 08/16/18 2:13 pm Comments DCP- Discharge Planning Updated by [id number]: Anabelle Lenz on 08/16/18 12:[address] Patient Name: SUZIE PRICE Admission Status: ER Accout number: [id number] Admission Date: 08-14-2018 : 1930 Admission Diagnosis: Attending: HARI WHITMAN Current LOS: 2 Anticipated DC Date: Planned Disposition: Home Primary Insurance: MEDICARE A & B Discharge Planning Comments: CM MET WITH PT AFTER VERBAL CONSENT TO DO INITIAL CM ASSESSMENT. CM EXPLAINED THE ROLE OF A CM AND SERVICES AVAILABLE LIKE HOME HEALTH, REHAB AND DME. PT STATED SHE WILL RETURN HOME WITH FAMILY. PT FEELS THIS IS A SAFE DC PLAN AND DENIES AND CM NEEDS AT THIS TIME OTHER THAN HOME O2. THE PAPER WORK IS AWAITING DR PERRY FOR HOME 02. WALK STUDY WAS COMPLETED . DANIELE WAS SIGNED FOR [facility] AND [facility] CM WILL CONTINUE TO FOLLOW. Crepe Maker: Anabelle Lenz DCP- Discharge Planning Updated by [email or web address]: Sheldon Soliz on 08/14/18 4:[address] Patient Name: SUZIE PRICE Admission Status: ER Accout number: [id number] Admission Date: 08-13-2018 : 1930 Admission Diagnosis: Attending: HARI HWITMAN Current LOS: 1 Anticipated DC Date: Planned Disposition: Primary Insurance: MEDICARE A & B Discharge Planning Comments: CM RECEIVED OXYGEN TESTING INDICATING THAT PT IS 90% ON ROOM AIR AT REST, 80% ON ROOM AIR ON EXERTION AND RECOVERY OF 90% ON 2 LITERS DURING EXERTION. CM SCANNED COPY INTO CASE MANAGEMENT FILE, CM PLACED ORIGINAL INTO CHART. CM WILL ARRANGE HOME OXYGEN WITH PHYSICIAN ORDER; IF PT DOES NOT DISCHARGE PRIOR TO 08-16-18, PT WILL REQUIRE NEW QUALIFYING OXYGEN TESTING TO ARRANGE OXYGEN. CM TO FOLLOW AND ASSIST IF NEEDED. Crepe Maker: Sheldon Singh DP export: 08/16/18 12:05 p Patient Name: SUZIE PRICE Page [phone] at 1313 All edits/amendments must be made on the electronic document DICTATION DATE: 08/16/18 131 RUG MEASURER: DENNIS 08/16/18 1312 RPT#: [id number] DC DATE: STATUS: ADM IN [facility] [address] [place] [address] END OF REPORT
[2018-08-16 15:57] VITALS: BP 110/68
[2018-08-16 20:35] VITALS: BP 97/52
[2018-08-17 01:13] VITALS: BP 91/43
[2018-08-17 05:01] LABS: BASOPHILS 0.3 % (0-2); HEMATOCRIT 36.1 % (36.0-48.0); HEMOGLOBIN 11.8 g/dL (12-16); IMMATURE GRANULOCYTES 0.1 % (0-5); LYMPHOCYTES 16.2 % (15-50); MCH 34.2 pg (26.0-34.0); MCHC 32.7 g/dL (31.0-37.0); MCV 104.6 fL (80.0-100.0); MEAN PLATELET VOLUME 10.1 fL (7.4-10.4); MONOCYTES 13.5 % (2-11); NEUTROPHILS 67.9 % (40-80); PLATELET COUNT 165 10x3/uL (130-400); RBC 3.45 10x6/uL (4.00-5.40); RDW 15.7 % (11.5-14.5); WBC 7.6 10x3/uL (4.8-10.8)
[2018-08-17 05:08] LABS: CALC OSMOLALITY 285 mosm/kg (275-300); CALCIUM 8.2 mg/dL (8.5-10.1); CARBON DIOXIDE 28.9 mmol/L (21.0-32.0); CHLORIDE - SERUM 106 mmol/L (98-107); CREATININE - SERUM 0.6 mg/dL (0.6-1.3); GLUCOSE 95 mg/dL (74-106); POTASSIUM - SERUM 4.3 mmol/L (3.5-5.1); SODIUM 141 mmol/L (136-145); UREA NITROGEN 27 mg/dL (7-18); eGFR NON AFRICAN AMERICAN > 90 mL/min (90-120)
[2018-08-17 05:26] VITALS: BP 90/61
[2018-08-17 08:16] VITALS: BP 113/74
--- NOTE | 2018-08-17 10:34 | MORECARE ---
CASE MANAGEMENT DISCHARGE SUMMARY PATIENT: SUZIE PRICE UNIT: [id number] ADM DATE: 08/14/18 AGE: 87 : 30 SEX: F ROOM/BED: D.7339 AUTHOR: TOM BARRETT PHYSICIAN: REFERRING PHYSICIAN: HAIR WHITMAN MD DATE OF SERVICE: 08/17/18 Discharge Plan Patient Name: SUZIE PRICE Facility: [facility]:[place] : 1930 Planned Disposition: Home Anticipated Discharge Date: Discharge Date: Expected LOS: Initial Reviewer: [email or web address] Initial Review Date: 08/16/2018 Generated: 08/17/18 11:34 am Comments DCP- Discharge Planning Updated by [email or web address]: Mary Zhang on 08/17/18 9:30 am DORCAS RENE, RN BEDSIDE NURSE ASKED ME IF OXYGEN WOULD BE ABLE TO BE SET UP FOR PATIENT TO GO HOME TODAY. I EXPLAINED I WOULD HAVE TO RESEARCH IT. PATIENT HAD DWO ON FRONT OF CHART NEEDING PHYSICIAN SIGNATURE. DR ORDONEZ HERE AND HE SIGNED THE ORDER. I PLACED A CALL TO [facility] PATIENT AT [phone] AND LEFT A MESSAGE WITH THE ANSWERING SERVICE @ [phone]. @[phone] RECEIVED A CALL BACK FROM [facility]. EXPLAINED THE NEED, AND HE STATED THAT HE WOULD BE HERE AROUND NOON TO DELIVER THE PORTABLE AND MAKE ARRANGEMENTS TO DELIVER THE HOME CONCENTRATOR AND NIGHT PATROL INSPECTOR THE ORDER WITH PAPERWORK. I HAVE EXPLAINED THIS TO THE BEDSIDE NURSE ANJU, AND SHE WILL GET THE ORDER FOR DISCHARGE. DCP- Discharge Planning Updated by [email or web address]: Anabelle Lenz on 08/16/18 12:[address] Patient Name: SUZIE PRICE Admission Status: ER Accout number: [id number] Admission Date: 08-14-2018 : 1930 Admission Diagnosis: Attending: HARI WHITMAN Current LOS: 2 Anticipated DC Date: Planned Disposition: Home Primary Insurance: MEDICARE A & B Discharge Planning Comments: CM MET WITH PT AFTER VERBAL CONSENT TO DO INITIAL CM ASSESSMENT. CM EXPLAINED THE ROLE OF A CM AND SERVICES AVAILABLE LIKE HOME HEALTH, REHAB AND DME. PT STATED SHE WILL RETURN HOME WITH FAMILY. PT FEELS THIS IS A SAFE DC PLAN AND DENIES AND CM NEEDS AT THIS TIME OTHER THAN HOME O2. THE PAPER WORK IS AWAITING SIGNATURE FOR HOME 02. WALK STUDY WAS COMPLETED . DANIELE WAS SIGNED FOR [facility] AND [facility] CM WILL CONTINUE TO FOLLOW. Swimming Teacher: Anabelle Lenz DCP- Discharge Planning Updated by [email or web address]: Sheldon Soliz on 08/14/18 4:[address] Patient Name: SUZIE PRICE Admission Status: ER Accout number: [id number] Admission Date: 08-13-2018 : 1930 Admission Diagnosis: Attending: HARI WHITMAN Current LOS: 1 Anticipated DC Date: Planned Disposition: Primary Insurance: MEDICARE A & B Discharge Planning Comments: CM RECEIVED OXYGEN TESTING INDICATING THAT PT IS 90% ON ROOM AIR AT REST, 80% ON ROOM AIR ON EXERTION AND RECOVERY OF 90% ON 2 LITERS DURING EXERTION. CM SCANNED COPY INTO CASE MANAGEMENT FILE, CM PLACED ORIGINAL INTO CHART. CM WILL ARRANGE HOME OXYGEN WITH PHYSICIAN ORDER; IF PT DOES NOT DISCHARGE PRIOR TO 08-16-18, PT WILL REQUIRE NEW QUALIFYING OXYGEN TESTING TO ARRANGE OXYGEN. CM TO FOLLOW AND ASSIST IF NEEDED. Swimming Teacher: Sheldon Soliz Last DP export: 08/16/18 12:13 p Patient Name: SUZIE PRICE Page [phone] at 1034 All edits/amendments must be made on the electronic document DICTATION DATE: 08/17/18 1033 STEM MAKER: DENNIS 08/17/18 1033 RPT#: [id number] DC DATE: STATUS: ADM IN [facility] [address] [place] [address] END OF REPORT
[2018-08-17] MEDS ORDERED: LASIX40 MG PO (11:29)
[2018-08-17] MEDS ORDERED: K-DUR20 MEQ PO (11:29)
--- NOTE | 2018-08-18 09:11 | MORECARE ---
CASE MANAGEMENT DISCHARGE SUMMARY PATIENT: SUZIE PRICE UNIT: [id number] ADM DATE: 08/14/18 AGE: 87 : 30 SEX: F ROOM/BED: D.8769 AUTHOR: TOM BARRETT PHYSICIAN: REFERRING PHYSICIAN: HARI WHITMAN MD DATE OF SERVICE: 08/18/18 Discharge Plan Patient Name: SUZIE PRICE Facility: [facility]:[place] : 1930 Planned Disposition: Home Anticipated Discharge Date: 08/17/18 Discharge Date: 08/17/2018 Expected LOS: 3 Initial Reviewer: [email or web address] Initial Review Date: 08/16/2018 Generated: 08/18/18 10:11 am Comments DCP- Discharge Planning Updated by [email or web address]: Mary Zhang on 08/17/18 9:[address] ANJU, RN BEDSIDE NURSE ASKED ME IF OXYGEN WOULD BE ABLE TO BE SET UP FOR PATIENT TO GO HOME TODAY. I EXPLAINED I WOULD HAVE TO RESEARCH IT. PATIENT HAD DWO ON FRONT OF CHART NEEDING PHYSICIAN SIGNATURE. DR ORDONEZ HERE AND HE SIGNED THE ORDER. I PLACED A CALL TO [facility] PATIENT AT [phone] AND LEFT A MESSAGE WITH THE ANSWERING SERVICE @ [phone]. @[phone] RECEIVED A CALL BACK FROM [facility]. EXPLAINED THE NEED, AND HE STATED THAT HE WOULD BE HERE AROUND NOON TO DELIVER THE PORTABLE AND MAKE ARRANGEMENTS TO DELIVER THE HOME CONCENTRATOR AND LUMBER STACKER DRIVER THE ORDER WITH PAPERWORK. I HAVE EXPLAINED THIS TO THE BEDSIDE NURSE ANJU, AND SHE WILL GET THE ORDER FOR DISCHARGE. DCP- Discharge Planning Updated by [email or web address]: Anabelle Lenz on 08/16/18 12:[address] Patient Name: SUZIE PRICE Admission Status: ER Accout number: [id number] Admission Date: 08-14-2018 : 1930 Admission Diagnosis: Attending: HARI WHITMAN Current LOS: 2 Anticipated DC Date: Planned Disposition: Home Primary Insurance: MEDICARE A & B Discharge Planning Comments: CM MET WITH PT AFTER VERBAL CONSENT TO DO INITIAL CM ASSESSMENT. CM EXPLAINED THE ROLE OF A CM AND SERVICES AVAILABLE LIKE HOME HEALTH, REHAB AND DME. PT STATED SHE WILL RETURN HOME WITH FAMILY. PT FEELS THIS IS A SAFE DC PLAN AND DENIES AND CM NEEDS AT THIS TIME OTHER THAN HOME O2. THE PAPER WORK IS AWAITING DR PERRY FOR HOME 02. WALK STUDY WAS COMPLETED . DANIELE WAS SIGNED FOR [facility] AND [facility] CM WILL CONTINUE TO FOLLOW. Branch Manager Trainee: Anabelle Lenz DCP- Discharge Planning Updated by [email or web address]: Sheldon Soliz on 08/14/18 4:[address] Patient Name: SUZIE PRICE Admission Status: ER Accout number: [id number] Admission Date: 08-13-2018 : 1930 Admission Diagnosis: Attending: HARI WHITMAN Current LOS: 1 Anticipated DC Date: Planned Disposition: Primary Insurance: MEDICARE A & B Discharge Planning Comments: CM RECEIVED OXYGEN TESTING INDICATING THAT PT IS 90% ON ROOM AIR AT REST, 80% ON ROOM AIR ON EXERTION AND RECOVERY OF 90% ON 2 LITERS DURING EXERTION. CM SCANNED COPY INTO CASE MANAGEMENT FILE, CM PLACED ORIGINAL INTO CHART. CM WILL ARRANGE HOME OXYGEN WITH PHYSICIAN ORDER; IF PT DOES NOT DISCHARGE PRIOR TO 08-16-18, PT WILL REQUIRE NEW QUALIFYING OXYGEN TESTING TO ARRANGE OXYGEN. CM TO FOLLOW AND ASSIST IF NEEDED. Branch Manager Trainee: Sheldon Soliz Last DP export: 08/17/18 9:34 a Patient Name: SUZIE PRICE Page [phone] at 0911 All edits/amendments must be made on the electronic document DICTATION DATE: 08/18/18910 SIGN PAINTER: DENNIS 08/18/18910 RPT#: [id number] DC DATE:08/17/18 STATUS: DIS IN [facility] [address] [place] [address] END OF REPORT
== END 2018-08-17 13:08 | disposition home or self-care (01) | DRG 246 ==
LOC: D.ER 09:32 → D.M2 12:15 → OBSVTIME 12:15 → D.M2 12:15
PROVIDERS: Family Medicine; Internal Medicine Interventional Cardiology; ADMIT Internal Medicine Nephrology; ATTEND Internal Medicine Nephrology
PROC: 4A023N7 Measurement of Cardiac Sampling and Pressure, Left Heart, Percutaneous Approach (ICD-10-PCS; 2018-08-14)
PROC: B2111ZZ Fluoroscopy of Multiple Coronary Arteries using Low Osmolar Contrast (ICD-10-PCS; 2018-08-14)
PROC: B2151ZZ Fluoroscopy of Left Heart using Low Osmolar Contrast (ICD-10-PCS; 2018-08-14)
PROC: 027135Z Dilation of Coronary Artery, Two Arteries with Two Drug-eluting Intraluminal Devices, Percutaneous Approach (ICD-10-PCS; principal; 2018-08-14 07:38)
PROC: 02703ZZ Dilation of Coronary Artery, One Artery, Percutaneous Approach (ICD-10-PCS; 2018-08-14 07:38)
DX: I21.4 Non-ST elevation (NSTEMI) myocardial infarction (principal); J96.01 Acute respiratory failure with hypoxia; I50.23 Acute on chronic systolic (congestive) heart failure; J98.11 Atelectasis; Z95.0 Presence of cardiac pacemaker; I10 Essential (primary) hypertension; E78.5 Hyperlipidemia, unspecified; E03.9 Hypothyroidism, unspecified; I25.5 Ischemic cardiomyopathy; I11.0 Hypertensive heart disease with heart failure; I08.3 Combined rheumatic disorders of mitral, aortic and tricuspid valves; I27.21 Secondary pulmonary arterial hypertension; I25.10 Atherosclerotic heart disease of native coronary artery without angina pectoris

== ENCOUNTER → 2018-08-24 09:43 | Outpatient (CLI) | payer MEDICARE, BC ==
[2018-08-15 12:07] VITALS: BMI 26.3
[~2018-08-24 09:43] MED LIST changes: +ASPIRIN81 MG PO; +CENTRUM SILVER1 EAC3 PO; +COZAAR25 MG PO; +K-DUR20 MEQ PO; +LASIX40 MG PO; +METOPROLOL TART25 MG PO; +PLAVIX75 MG PO
--- NOTE | 2018-08-25 14:37 | EC ---
PATIENT:SUZIE PRICE DATE OF SERVICE: 08/24/18 SEX: F MEDICAL RECORD: [id number] DATE OF : 30 LOCATION:[facility] AGE OF PATIENT: 87 ADMISSION DATE: 08/24/18 REFERRING PHYSICIAN: INTERPRETING PHYSICIAN: CESAR CHUNG MD ECHOCARDIOGRAM REPORT ECHO CHARGES 4 ECHO COMPLETE Date: 08/24/18 CLINICAL DIAGNOSIS: ECHOCARDIOGRAPHIC MEASUREMENTS (adult normal given) AC root (d.<3.7cm) 2.1 cm LV Septum d (<1.2 cm> 1.0 cm Valve Excursion 0.6 cm LV Septum (systole) 1.1 cm Left Atria (s.<4.0cm> 3.5 cm LVPW d(<1.2cm) 1.2 cm RV (d.<2.3cm) 2.6 cm LVPW (sytole) 1.8 cm LV diastole(<5.6CM) 4.6 cm MV E-F(>70mm/sec) cm LV systole 3.4 cm LVOT Diameter 2.0 cm MV exc.(>10mm) cm Est.ejection fraction (50-75%) % DOPPLER: LVIT cm/sec A 125 cm/sec E 56 cm/sec LA cm/sec RVSP 39.0 mmHg LVOT 59 cm/sec AOP1/2T m/s Asc. Ao 438 cm/sec RVOT 82 cm/sec RA cm/sec PA 155 cm/sec AV Gradient Peak 76.6 mmHg AV Mean 61.0 mmHg AV Area 0.4 cm MV Gradient Peak 9.0 mmHg MV Mean 4.4 mmHg MV Area cm COMMENTS: Entry Manager: Amee HURTADO Unit Aide: Rodolfo Chung TAPE# PACS Pericardial Effusion N DATE OF SERVICE: 08/24/2018 PROCEDURE: Echocardiogram. FINDINGS: 1. Left ventricular chamber size is upper limits of normal. Left ventricular systolic function is moderately reduced, overall ejection fraction in the 30% range. 2. Left atrium, right atrium, and right ventricular chamber sizes are within normal limits. ECHOCARDIOGRAM REPORT [id number] SUZIE PRICE 3. 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 The remaining valvular structures have normal structure and motion. 4. Doppler interrogation elsewise reveals mild aortic insufficiency, mild mitral regurgitation, trace tricuspid regurgitation, no other valvular insufficiency or stenosis. Pulmonary systolic pressure is estimated at 39 mmHg. 5. No evidence of pericardial effusion or left ventricular thrombus. TRANSINT:[id number] Voice Confirmation ID: [id number] DOCUMENT ID: [id number] CESAR CHUNG MD at 1437 CC: [id number] DICTATION DATE: 08/24/18 1126 FINAL FINISHER FORGING DIES: 08/24/18 1157 DEP CLI 08/24/[address] [address]
== END | disposition home or self-care (01) ==
LOC: D.ECHO 09:43
PROVIDERS: ATTEND Thoracic Surgery (Cardiothoracic Vascular Surgery)
DX: I35.0 Nonrheumatic aortic (valve) stenosis (principal)